=== PATIENT | female | born 1970 | race Caucasian/White ===

== ENCOUNTER 2019-11-18 09:12 | Outpatient (CLI) | payer OTHER, SELFPAY ==
--- NOTE | ~2019-11-18 | MMUS_ITS ---
EXAMINATION: MM diagnostic dalia BI w adan, US breast BI complete HISTORY: Palpable breast lumps. TECHNIQUE: Additional 3-D tomosynthesis images of the breasts were performed and synthetic 2-D images were generated. CAD analysis was submitted and interpreted. High resolution bilateral breast ultraso und was performed. COMPARISON: Comparison to multiple prior studies sequentially, with oldest reviewed study dated 03/19. BREAST PARENCHYMAL COMPOSITION: The breasts are extremely dense, which lowers the sensitivity of mamm ography. FINDINGS: MAMMOGRAPHIC FINDINGS: There are multiple bilateral breast masses in both breasts which are obscured by dense fibroglandular tissue. There are benign breast calcifications. ULTRASOUND: Bilateral breast ultrasound: There are multiple bilateral breast cysts of varying size. In addition i n the right breast at 12:00, 1 cm from the nipple there is a complex heterogeneous mass measuring 2.3 x 1.6 x 1 cm with mixed posterior attenuation and internal vascularity. Largest right breast cysts i s 2.1 cm. In the left breast at 7:00, 4 cm from the nipple there is an oval hypoechoic mass with circ umscribed margins, parallel orientation, no posterior attenuation and no internal vascularity measuri ng 6 mm maximum dimension. At 8:00, 4 cm from the nipple there is an oval circumscribed hypoechoic ma ss measuring 8 mm greatest dimension, likely benign intramammary lymph node. Largest left breast cyst at 2:00, 6 cm from the nipple measuring 3.2 cm maximum dimension. IMPRESSION: 1. Complex heterogeneous hypoechoic right breast mass at 12:00, 1 cm from the nipple measuring 2.3 cm maximum dimension. Ultrasound-guided right breast biopsy recommended. BI-RADS Category 4. 2. Multiple benign left breast masses. Six-month follow-up left breast ultrasound recommended. BI-RAD S Category 3. Reviewed, dictated and finalized at location [facility]. IMPRESSION: 1. Complex heterogeneous hypoechoic right breast mass at 12:00, 1 cm from the n ipple measuring 2.3 cm maximum dimension. Ultrasound-guided right breast biopsy recommended. BI-RADS Category 4. 2. Multiple benign left breast masses. Six-month follow-up left breast ultrasou nd recommended. BI-RADS Category 3.
== END 2019-11-18 09:13 | disposition home or self-care (01) ==
PROVIDERS: PCP Physician Assistant; Visit Provider Physician Assistant
DX: Z12.31 Encounter for screening mammogram for malignant neoplasm of breast (principal); N63.10 Unspecified lump in the right breast, unspecified quadrant; R92.8 Other abnormal and inconclusive findings on diagnostic imaging of breast
CPT/HCPCS: 76641; 77062; 77066; G0279

== ENCOUNTER 2019-12-02 09:07 | Outpatient (CLI) | payer OTHER, SELFPAY ==
--- NOTE | ~2019-12-02 | US_ITS ---
EXAMINATION: US GUIDED NEEDLE BIOPSY DATE: 12/02/2019 11:56 CDT INDICATION: Right 12:00 breast mass TECHNIQUE AND FINDINGS: The risks and potential benefits of the procedure were discussed with the patient, and written inform ed consent was obtained. Timeout procedure was performed. After sterile preparation of the right hosea st, 1% lidocaine was utilized for local anesthesia. A 14G spring-loaded biopsy gun needle was advanced to the edge of the region of interest from a later al approach utilizing sonographic guidance. A total of three tissue core samples were obtained throu gh the lesion. An Inrad tissue marker clip was then placed at the biopsy site. Hemostasis was achiev ed. A sterile bandage was applied. The patient tolerated procedure well and there was no evidence of immediate complication. The patien t was given verbal instructions prior to departing from the department. A two view mammogram was perf ormed to document tissue marker clip placement. The tissue samples were submitted to surgical patholo gy for histologic analysis. IMPRESSION: 1. Successful ultrasound guided biopsy of right 12:00 breast mass with biopsy marker placement. Plea se refer to pathology report for histologic analysis. Reviewed, dictated and finalized at [facility]. Reviewed, dictated and finalized at location [facility]. IMPRESSION: 1. Successful ultrasound guided biopsy of right 12:00 breast mass with biopsy marker placement. Please refer to pathology report for histologic analysis.
--- NOTE | ~2019-12-02 | MM_ITS ---
MM post biopsy invasive RT DATE: 12/02/2019 11:20 INDICATION: Post ultrasound-guided biopsy mammogram TECHNIQUE: Digital MLO and cc views of right breast following ultrasound-guided biopsy of 12:00 mass COMPARISON: 12/02/2019 ultrasound-guided biopsy of right breast FINDINGS: A biopsy marker is present in the inner aspect of the upper inner quadrant of the right shady ast IMPRESSION: Status post ultrasound-guided biopsy of right upper central breast mass Reviewed, dictated and finalized at [facility]. Reviewed, dictated and finalized at location [facility].
== END 2019-12-02 09:08 | disposition home or self-care (01) ==
PROVIDERS: PCP Physician Assistant; Visit Provider Physician Assistant
DX: R92.8 Other abnormal and inconclusive findings on diagnostic imaging of breast (principal)
CPT/HCPCS: 19083; 88305

== ENCOUNTER 2024-04-05 07:22 | Outpatient (CLI) | payer BC, SELFPAY ==
--- NOTE | ~2024-04-05 | CT_ITS ---
EXAMINATION: CT abdomen pelvis wo/w con DATE: 04/05/2024 08:14 INDICATION: Right kidney stone. TECHNIQUE: Computed tomography (CT) of the abdomen and pelvis was performed without and with intraven ous contrast using a total of 130 mL Omnipaque-350 intravenous contrast with a double-bolus technique for simultaneous opacification of the renal parenchyma and renal collecting system. Automated exposu re control and iterative reconstruction technique were employed. The dose-length product was 961.44 m Gy-cm. COMPARISON: None FINDINGS: The visualized portions of the lung bases demonstrate mild atelectasis. No pleural effusion. The hear t size is normal. No pericardial effusion. There is a small sliding hiatal hernia. The liver, gallbla dder, spleen, pancreas, and adrenal glands are normal. There are 7 mm and 7 mm stones in right kidney . There are cysts in the kidneys measuring up to 6 mm on the left. The ureters are well opacified and are normal. The bladder is normal. There are no dilated loops of bowel. The appendix is normal. Ther e is a small fibroid in the uterus. There are no pathologically enlarged lymph nodes. There is no marva e intraperitoneal fluid. There is mild thoracic and lumbar spondylosis. IMPRESSION: 1. Nonobstructing right kidney stones. Reviewed, dictated and finalized at location B. 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
--- OUTSIDE RECORDS SUMMARY | 2024-04-07 15:35 | XMS_ITS | Data Portability ---
Author Organization [facility] [place], Main Office Address [address] [place] [address] Assessment No assessment recorded. Plan of Treatment Reminders Order Date Submit Date Provider Last Modified By Organization Details Last Modified Time Details Appointments None recorded. Lab TSH + free T4, serum 2022 023 [facility], [address], [address], [place], [address], 3 09:01:28 lipid panel, serum 2022 023 [facility], [address], [address], [place], [address], 3 09:01:30 urinalysis, dipstick 2022 023 [email or web address] [facility] [place], [address], [place], [address], 3 09:01:43 CBC w/ auto diff 2022 023 [facility], [address], [address], [place], [address], 3 09:01:33 CMP, serum or plasma 2022 023 [facility], [address], [address], [place], [address], 3 09:01:31 HbA1c (hemoglobin A1c), blood 2022 023 [facility], [address], [place], [address], 09:01:32 Referral None recorded. Procedures None recorded. Surgeries None recorded. Imaging None recorded. Medication Orders nitrofurant oin monohydrate /macrocryst als 100 mg capsule 2022 023 [email or web address] [id number], [address] [place], [address], 3 23:45:25 bupropion HCl SR 100 mg tablet,12 hr sustained-r elease 2022 023 [id number] [address] [place], [address], 3 13:11:26 Patient TargetsNo targets recorded. Patient InstructionsNo instructions recorded. Reason for Referral None Reported. Results Created Date Observation Date Name Description Value Unit Range Abnormal Flag Note LastModifiedBy Organization Detail LastModifiedTime 01/08/2001/09/2021 REFLE XIVE URINE CULTU RE reflexive urine culture NO CULTU RE INDIC ATED Not Available [address], [address], 01/09/2021 01:29:08 01/08/2001/09/2021 URINA LYSIS , COMPL ETE W/REF ERIC TO CULTU RE color yellow yellow normal Not Available [address], [address], 01/09/2021 01:29:08 01/08/2001/09/2021 URINA LYSIS , COMPL ETE W/REF ERIC TO CULTU RE appearance clear clear normal Not Available [address], [address], 01/09/2021 01:29:08 01/08/2001/09/2021 URINA LYSIS , COMPL ETE W/REF ERIC TO CULTU RE specific gravity 1.014 1.001- 1.035 normal Not Available [address], [address], 01/09/2021 01:29:08 01/08/2001/09/2021 URINA LYSIS , COMPL ETE W/REF ERIC TO CULTU RE pH 6.5 5.0-8. 0 normal Not Available [address], [address], 01/09/2021 01:29:08 01/08/2001/09/2021 URINA LYSIS , COMPL ETE W/REF ERIC TO CULTU RE glucose negati ve negati ve normal Not Available [address], [address], 01/09/2021 01:29:08 01/08/2001/09/2021 URINA LYSIS , COMPL ETE W/REF ERIC TO CULTU RE bilirubin negati ve negati ve normal Not Available [address], [address], 01/09/2021 01:29:08 01/08/2001/09/2021 URINA LYSIS , COMPL ETE W/REF ERIC TO CULTU RE ketones negati ve negati ve normal Not Available [address], [address], 01/09/2021 01:29:08 01/08/2001/09/2021 URINA LYSIS , COMPL ETE W/REF ERIC TO CULTU RE occult blood negati ve negati ve normal Not Available [address], [address], 01/09/2021 01:29:08 01/08/2001/09/2021 URINA LYSIS , COMPL ETE W/REF ERIC TO CULTU RE protein negati ve negati ve normal Not Available [address], [address], 01/09/2021 01:29:08 01/08/2001/09/2021 URINA LYSIS , COMPL ETE W/REF ERIC TO CULTU RE nitrite negati ve negati ve normal Not Available [address], [address], 01/09/2021 01:29:08 01/08/2001/09/2021 URINA LYSIS , COMPL ETE W/REF ERIC TO CULTU RE leukocyte esterase negati ve negati ve normal Not Available [address], [address], 01/09/2021 01:29:08 01/08/2001/09/2021 URINA LYSIS , COMPL ETE W/REF ERIC TO CULTU RE WBC 0-5 /hpf < or = 5 normal Not Available [address], [address], 01/09/2021 01:29:08 01/08/2001/09/2021 URINA LYSIS , COMPL ETE W/REF ERIC TO CULTU RE RBC 0-2 /hpf < or = 2 normal Not Available [address], [address], 01/09/2021 01:29:08 01/08/2001/09/2021 URINA LYSIS , COMPL ETE W/REF ERIC TO CULTU RE squamous epithelial cells 0-5 /hpf < or = 5 Not Available [address], [address], 01/09/2021 01:29:08 01/08/2001/09/2021 URINA LYSIS , COMPL ETE W/REF ERIC TO CULTU RE bacteria none seen /hpf none seen normal Not Available [address], [address], 01/09/2021 01:29:08 01/08/2001/09/2021 URINA LYSIS , COMPL ETE W/REF ERIC TO CULTU RE hyaline cast none seen /lpf none seen normal Not Available [address], [address], 01/09/2021 01:29:08 01/08/20 21 01/09/2021 CBC (INCL UDES DIFF/ PLT) white blood cell count 4.1 thous and/u L 3.8-10 .8 normal Not Available [address], [address], 01/09/2021 01:29:07 01/08/2001/09/2021 CBC (INCL UDES DIFF/ PLT) red blood cell count 3.80 marley on/uL 3.80-5 .10 normal Not Available [address], [address], 01/09/2021 01:29:07 01/08/20 21 01/09/2021 CBC (INCL UDES DIFF/ PLT) hemoglobin 12.4 g/dL 11.7-1 5.5 normal Not Available [address], [address], 01/09/2021 01:29:07 01/08/20 21 01/09/2021 CBC (INCL UDES DIFF/ PLT) hematocrit 36.1 % 35.0-4 5.0 normal Not Available [address], [address], 01/09/2021 01:29:07 01/08/2001/09/2021 CBC (INCL UDES DIFF/ PLT) MCV 95.0 fL 80.0-1 00.0 normal Not Available [address], [address], 01/09/2021 01:29:07 01/08/20 21 01/09/2021 CBC (INCL UDES DIFF/ PLT) MCH 32.6 pg 27.0-3 3.0 normal Not Available [address], [address], 01/09/2021 01:29:07 01/08/2001/09/2021 CBC (INCL UDES DIFF/ PLT) MCHC 34.3 g/dL 32.0-3 6.0 normal Not Available [address], [address], 01/09/2021 01:29:07 01/08/2001/09/2021 CBC (INCL UDES DIFF/ PLT) RDW 12.5 % 11.0-1 5.0 normal Not Available [address], [address], 01/09/2021 01:29:07 01/08/2001/09/2021 CBC (INCL UDES DIFF/ PLT) platelet count 223 thous and/u L 140-40 0 normal Not Available [address], [address], 01/09/2021 01:29:07 01/08/2001/09/2021 CBC (INCL UDES DIFF/ PLT) MPV 10.3 fL 7.5-12 .5 normal Not Available [address], [address], 01/09/2021 01:29:07 01/08/2001/09/2021 CBC (INCL UDES DIFF/ PLT) absolute neutrophils 2612 cells /uL 1500-7 800 normal Not Available [address], [address], 01/09/2021 01:29:07 01/08/2001/09/2021 CBC (INCL UDES DIFF/ PLT) absolute lymphocytes 996 cells /uL 850-39 00 normal Not Available [address], [address], 01/09/2021 01:29:07 01/08/20 21 01/09/2021 CBC (INCL UDES DIFF/ PLT) absolute monocytes 320 cells /uL 200-95 0 normal Not Available [address], [address], 01/09/2021 01:29:07 01/08/20 21 01/09/2021 CBC (INCL UDES DIFF/ PLT) absolute eosinophils 131 cells /uL 15-500 normal Not Available [address], [address], 01/09/2021 01:29:07 01/08/2001/09/2021 CBC (INCL UDES DIFF/ PLT) absolute basophils 41 cells /uL 0-200 normal Not Available [address], [address], 01/09/2021 01:29:07 01/08/2001/09/2021 CBC (INCL UDES DIFF/ PLT) neutrophils 63.7 % normal Not Available [address], [address], 01/09/2021 01:29:07 01/08/20 21 01/09/2021 CBC (INCL UDES DIFF/ PLT) lymphocytes 24.3 % normal Not Available [address], [address], 01/09/2021 01:29:07 01/08/2001/09/2021 CBC (INCL UDES DIFF/ PLT) monocytes 7.8 % normal Not Available [address], [address], 01/09/2021 01:29:07 01/08/20 21 01/09/2021 CBC (INCL UDES DIFF/ PLT) eosinophils 3.2 % normal Not Available [address], [address], 01/09/2021 01:29:07 01/08/20 21 01/09/2021 CBC (INCL UDES DIFF/ PLT) basophils 1.0 % normal Not Available [address], [address], 01/09/2021 01:29:07 01/08/20 21 01/09/2021 HEMOG LOBIN A1C hemoglobin A1C 4.6 %_of_ total _HGB <5.7 normal Not Available [address], [address], 01/09/2021 01:29:06 01/08/20 21 01/09/2021 COMPR EHENS CHELSEA METAB OLIC PANEL glucose 91 mg/dL 65-99 normal Fasti ng refer ence inter yves Not Available [address], [address], 01/09/2021 01:29:06 01/08/20 21 01/09/2021 COMPR EHENS CHELSEA METAB OLIC PANEL urea nitrogen (BUN) 15 mg/dL 7-25 normal Not Available [address], [address], 01/09/2021 01:29:06 01/08/20 21 01/09/2021 COMPR EHENS CHELSEA METAB OLIC PANEL creatinine 0.74 mg/dL 0.50-1 .10 normal Not Available [address], [address], 01/09/2021 01:29:06 01/08/20 21 01/09/2021 COMPR EHENS CHELSEA METAB OLIC PANEL eGFR non-afr. syrian 96 mL/mi n/1.7 3m2 > or = 60 normal Not Available [address], [address], 01/09/2021 01:29:06 01/08/20 21 01/09/2021 COMPR EHENS CHELSEA METAB OLIC PANEL eGFR 111 mL/mi n/1.7 3m2 > or = 60 normal Not Available [address], [address], 01/09/2021 01:29:06 01/08/20 21 01/09/2021 COMPR EHENS CHELSEA METAB OLIC PANEL BUN/creatini ne ratio not applic able (calc ) 6-22 Not Available [address], [address], 01/09/2021 01:29:06 01/08/20 21 01/09/2021 COMPR EHENS CHELSEA METAB OLIC PANEL sodium 139 mmol/ L 135-14 6 normal Not Available [address], [address], 01/09/2021 01:29:06 01/08/20 21 01/09/2021 COMPR EHENS CHELSEA METAB OLIC PANEL potassium 3.8 mmol/ L 3.5-5. 3 normal Not Available [address], [address], 01/09/2021 01:29:06 01/08/20 21 01/09/2021 COMPR EHENS CHELSEA METAB OLIC PANEL chloride 106 mmol/ L 98-110 normal Not Available [address], [address], 01/09/2021 01:29:06 01/08/20 21 01/09/2021 COMPR EHENS CHELSEA METAB OLIC PANEL carbon dioxide 26 mmol/ L 20-32 normal Not Available [address], [address], 01/09/2021 01:29:06 01/08/20 21 01/09/2021 COMPR EHENS CHELSEA METAB OLIC PANEL calcium 8.7 mg/dL 8.6-10 .2 normal Not Available [address], [address], 01/09/2021 01:29:06 01/08/20 21 01/09/2021 COMPR EHENS CHELSEA METAB OLIC PANEL protein, total 6.3 g/dL 6.1-8. 1 normal Not Available [address], [address], 01/09/2021 01:29:06 01/08/20 21 01/09/2021 COMPR EHENS CHELSEA METAB OLIC PANEL albumin 4.2 g/dL 3.6-5. 1 normal Not Available [address], [address], 01/09/2021 01:29:06 01/08/2001/09/2021 COMPR EHENS CHELSEA METAB OLIC PANEL globulin 2.1 g/dL_ (calc ) 1.9-3. 7 normal Not Available [address], [address], 01/09/2021 01:29:06 01/08/20 21 01/09/2021 COMPR EHENS CHELSEA METAB OLIC PANEL albumin/glob ulin ratio 2.0 (calc ) 1.0-2. 5 normal Not Available [address], [address], 01/09/2021 01:29:06 01/08/2001/09/2021 COMPR EHENS CHELSEA METAB OLIC PANEL bilirubin, total 0.9 mg/dL 0.2-1. 2 normal Not Available [address], [address], 01/09/2021 01:29:06 01/08/20 21 01/09/2021 COMPR EHENS CHELSEA METAB OLIC PANEL alkaline phosphatase 62 U/L 31-125 normal Not Available [address] [address] [place], [address], 01/09/2021 01:29:06 01/08/20 21 01/09/2021 COMPR EHENS CHELSEA METAB OLIC PANEL AST 13 U/L 10-35 normal Not Available [address], [address], 01/09/2021 01:29:06 01/08/20 21 01/09/2021 COMPR EHENS CHELSEA METAB OLIC PANEL ALT 9 U/L 6-29 normal Not Available [address], [address], 01/09/2021 01:29:06 01/08/20 21 01/09/2021 LIPID PANEL WITH RATIO S cholesterol, total 152 mg/dL <200 normal Not Available [address], [address], 01/09/2021 01:29:05 01/08/20 21 01/09/2021 LIPID PANEL WITH RATIO S HDL cholesterol 50 mg/dL > or = 50 normal Not Available [address], [address], 01/09/2021 01:29:05 01/08/20 21 01/09/2021 LIPID PANEL WITH RATIO S triglyceride s 80 mg/dL <150 normal Not Available [address], [address], 01/09/2021 01:29:05 01/08/20 21 01/09/2021 LIPID PANEL WITH RATIO S LDL-choleste rol 85 mg/dL _(flores c) normal Refer ence range : <100 Luisa able range <100 mg/dL for prima ry preve ntion ; <70 mg/dL for patie nts with CHD or diabe tic patie nts with > or = 2 CHD risk facto rs. LDL-C is now calcu lated using the Rosie n-Hop kins calcu carmencita n, which is a valid ated novel nico gilberto cline r accur acy than the Fried amirah equat ion in the estim ation of LDL-C . Rosie setphen SS et al. SONYA. 2013; 310(1 9): 2061- 2068 (http ://ed ucati on.Qu Clair elizabeth tics. com/f aq/FA Q164) Not Available [address], [address], 01/09/2021 01:29:05 01/08/20 21 01/09/2021 LIPID PANEL WITH RATIO S chol/HDLC ratio 3.0 (calc ) <5.0 normal Not Available [address], [address], 01/09/2021 01:29:05 01/08/2001/09/2021 LIPID PANEL WITH RATIO S LDL/HDL ratio 1.7 (calc ) Below avera ge Risk: <2.34 [place] ge Risk: 2.35- 4.12 Moder ate Risk: 4.13- 5.56 High Risk: >5.57 Not Available [address], [address], 01/09/2021 01:29:05 01/08/2001/09/2021 LIPID PANEL WITH RATIO S non HDL cholesterol 102 mg/dL _(flores c) <130 normal For patie nts with diabe dustin plus 1 major ASCVD risk facto r, treat ing to a non-H DL-C goal of <100 mg/dL (LDL- C of <70 mg/dL ) is consi solange a mari peshalini c optio n. Not Available [address], [address], 01/09/2021 01:29:05 01/08/2001/09/2021 TSH+F REE T4 TSH 1.99 mIU/L normal Refer ence Range > or = 20 Years 0.40- 4.50 Pregn kishan Range s First trime ster 0.26- 2.66 Secon d trime ster 0.55- 2.73 Third trime ster 0.43- 2.91 Not Available [facility] [address] [address] [place], [address], 01/09/2021 01:28:56 01/08/20 21 01/09/2021 TSH+F REE T4 T4, free 1.1 NG/dL 0.8-1. 8 normal Not Available [address], [address], 01/09/2021 01:28:56 01/31/20 22 01/31/2022 URINA LYSIS REFLE X color yellow yellow normal Not Available [address], [address], 01/31/2022 15:53:44 01/31/20 22 01/31/2022 URINA LYSIS REFLE X appearance cloudy clear abnormal Not Available [address], [address], 01/31/2022 15:53:44 01/31/20 22 01/31/2022 URINA LYSIS REFLE X specific gravity 1.016 1.001- 1.035 normal Not Available [address], [address], 01/31/2022 15:53:44 01/31/20 22 01/31/2022 URINA LYSIS REFLE X pH 5.5 5.0-8. 0 normal Not Available [address], [address], 01/31/2022 15:53:44 01/31/20 22 01/31/2022 URINA LYSIS REFLE X glucose negati ve negati ve normal Not Available [address], [address], 01/31/2022 15:53:44 01/31/20 22 01/31/2022 URINA LYSIS REFLE X bilirubin negati ve negati ve normal Not Available [address], [address], 01/31/2022 15:53:44 01/31/20 22 01/31/2022 URINA LYSIS REFLE X ketones negati ve negati ve normal Not Available [address], [address], 01/31/2022 15:53:44 01/31/20 22 01/31/2022 URINA LYSIS REFLE X occult blood negati ve negati ve normal Not Available [address], [address], 01/31/2022 15:53:44 01/31/20 22 01/31/2022 URINA LYSIS REFLE X protein negati ve negati ve normal Not Available [address], [address], 01/31/2022 15:53:44 01/31/20 22 01/31/2022 URINA LYSIS REFLE X nitrite negati ve negati ve normal Not Available [address], [address], 01/31/2022 15:53:44 01/31/20 22 01/31/2022 URINA LYSIS REFLE X leukocyte esterase 1+ negati ve abnormal Not Available [address], [address], 01/31/2022 15:53:44 01/31/20 22 01/31/2022 URINA LYSIS REFLE X WBC 10-20 /hpf < or = 5 abnormal Not Available [address], [address], 01/31/2022 15:53:44 01/31/20 22 01/31/2022 URINA LYSIS REFLE X RBC none seen /hpf < or = 2 normal Not Available [address], [address], 01/31/2022 15:53:44 01/31/20 22 01/31/2022 URINA LYSIS REFLE X squamous epithelial cells 10-20 /hpf < or = 5 abnormal Not Available [address], [address], 01/31/2022 15:53:44 01/31/20 22 01/31/2022 URINA LYSIS REFLE X bacteria many /hpf none seen abnormal Not Available [address], [address], 01/31/2022 15:53:44 01/31/20 22 01/31/2022 URINA LYSIS REFLE X hyaline cast none seen /lpf none seen normal Not Available [address], [address], 01/31/2022 15:53:44 01/31/20 22 01/31/2022 CBC (INCL UDES DIFF/ PLT) white blood cell count 4.9 thous and/u L 3.8-10 .8 normal Not Available [address], [address], 01/31/2022 15:53:43 01/31/20 22 01/31/2022 CBC (INCL UDES DIFF/ PLT) red blood cell count 4.40 marley on/uL 3.80-5 .10 normal Not Available [address], [address], 01/31/2022 15:53:43 01/31/20 22 01/31/2022 CBC (INCL UDES DIFF/ PLT) hemoglobin 13.7 g/dL 11.7-1 5.5 normal Not Available [address], [address], 01/31/2022 15:53:43 01/31/20 22 01/31/2022 CBC (INCL UDES DIFF/ PLT) hematocrit 40.4 % 35.0-4 5.0 normal Not Available [address], [address], 01/31/2022 15:53:43 01/31/20 22 01/31/2022 CBC (INCL UDES DIFF/ PLT) MCV 91.8 fL 80.0-1 00.0 normal Not Available [address], [address], 01/31/2022 15:53:43 01/31/20 22 01/31/2022 CBC (INCL UDES DIFF/ PLT) MCH 31.1 pg 27.0-3 3.0 normal Not Available [address], [address], 01/31/2022 15:53:43 01/31/20 22 01/31/2022 CBC (INCL UDES DIFF/ PLT) MCHC 33.9 g/dL 32.0-3 6.0 normal Not Available [address], [address], 01/31/2022 15:53:43 01/31/20 22 01/31/2022 CBC (INCL UDES DIFF/ PLT) RDW 13.0 % 11.0-1 5.0 normal Not Available [address], [address], 01/31/2022 15:53:43 01/31/20 22 01/31/2022 CBC (INCL UDES DIFF/ PLT) platelet count 263 thous and/u L 140-40 0 normal Not Available [address], [address], 01/31/2022 15:53:43 01/31/20 22 01/31/2022 CBC (INCL UDES DIFF/ PLT) MPV 10.6 fL 7.5-12 .5 normal Not Available [address], [address], 01/31/2022 15:53:43 01/31/20 22 01/31/2022 CBC (INCL UDES DIFF/ PLT) absolute neutrophils 2920 cells /uL 1500-7 800 normal Not Available [address], [address], 01/31/2022 15:53:43 01/31/20 22 01/31/2022 CBC (INCL UDES DIFF/ PLT) absolute lymphocytes 1186 cells /uL 850-39 00 normal Not Available [address], [address], 01/31/2022 15:53:43 01/31/20 22 01/31/2022 CBC (INCL UDES DIFF/ PLT) absolute monocytes 377 cells /uL 200-95 0 normal Not Available [address], [address], 01/31/2022 15:53:43 01/31/20 22 01/31/2022 CBC (INCL UDES DIFF/ PLT) absolute eosinophils 368 cells /uL 15-500 normal Not Available [address], [address], 01/31/2022 15:53:43 01/31/20 22 01/31/2022 CBC (INCL UDES DIFF/ PLT) absolute basophils 49 cells /uL 0-200 normal Not Available [address], [address], 01/31/2022 15:53:43 01/31/20 22 01/31/2022 CBC (INCL UDES DIFF/ PLT) neutrophils 59.6 % normal Not Available [address], [address], 01/31/2022 15:53:43 01/31/20 22 01/31/2022 CBC (INCL UDES DIFF/ PLT) lymphocytes 24.2 % normal Not Available [address] [place], [address], 01/31/2022 15:53:43 01/31/20 22 01/31/2022 CBC (INCL UDES DIFF/ PLT) monocytes 7.7 % normal Not Available [facility] [address] [address] [place], [address], 01/31/2022 15:53:43 01/31/20 22 01/31/2022 CBC (INCL UDES DIFF/ PLT) eosinophils 7.5 % normal Not Available [facility] [address] [address] [place], [address], 01/31/2022 15:53:43 01/31/20 22 01/31/2022 CBC (INCL UDES DIFF/ PLT) basophils 1.0 % normal Not Available [facility] [address] [address] [place], [address], 01/31/2022 15:53:43 01/31/20 22 01/31/2022 HEMOG LOBIN A1C hemoglobin A1C 4.8 %_of_ total _HGB <5.7 normal For the purpo se of screnelida alfred for the prese nce of diabe dustin: <5.7% Consi stent with the absen ce of diabe dustin 5.7-6 .4% Consi stent with incre ased risk for diabe dustin (pred iabet es) > or =6.5% Consi stent with diabe dustin This assay resul t is consi stent with a decre ased risk of diabe dustin. Curre ntly, no conse nsus exist justin luciano use of hemog lobin A1c for diagn osis of diabe dustin in child robert. Accor ding to Ameri can Diabe dustin Assoc iatio n (ADA) guide lines , hemog lobin A1c <7.0% repre sents optim al contr ol in non-p regna nt diabe tic patie nts. Diffe rent metri cs may apply to speci fic patie nt popul ation s. Stand ards of Medic al Care in Diabe dustin(A DA). Not Available [facility] [address] [place], [address], 01/31/2022 15:53:43 01/31/20 22 01/31/2022 COMPR EHENS CHELSEA METAB OLIC PANEL glucose 97 mg/dL 65-99 normal Fasti ng refer ence inter yves Not Available [address], [address], 01/31/2022 15:53:42 01/31/20 22 01/31/2022 COMPR EHENS CHELSEA METAB OLIC PANEL urea nitrogen (BUN) 18 mg/dL 7-25 normal Not Available [address], [address], 01/31/2022 15:53:42 01/31/20 22 01/31/2022 COMPR EHENS CHELSEA METAB OLIC PANEL creatinine 0.76 mg/dL 0.50-0 .99 normal Not Available [address], [address], 01/31/2022 15:53:42 01/31/20 22 01/31/2022 COMPR EHENS CHELSEA METAB OLIC PANEL eGFR 96 mL/mi n/1.7 3m2 > or = 60 normal The eGFR is based on the CKD-E PI 2020 vickey meza. To calcu late the new eGFR from a previ ous Creat inine or Cysta tin C resul t, go to https ://yadira vela.mckenna holland/davis walden s/ kdoqi /gfr% 5Fcal culat or Not Available [address], [address], 01/31/2022 15:53:42 01/31/20 22 01/31/2022 COMPR EHENS CHELSEA METAB OLIC PANEL BUN/creatini ne ratio not applic able (calc ) 6-22 Not Available [address], [address], 01/31/2022 15:53:42 01/31/20 22 01/31/2022 COMPR EHENS CHELSEA METAB OLIC PANEL sodium 139 mmol/ L 135-14 6 normal Not Available [address], [address], 01/31/2022 15:53:42 01/31/20 22 01/31/2022 COMPR EHENS CHELSEA METAB OLIC PANEL potassium 4.2 mmol/ L 3.5-5. 3 normal Not Available [address], [address], 01/31/2022 15:53:42 01/31/20 22 01/31/2022 COMPR EHENS CHELSAE METAB OLIC PANEL chloride 104 mmol/ L 98-110 normal Not Available [address], [address], 01/31/2022 15:53:42 01/31/20 22 01/31/2022 COMPR EHENS CHELSEA METAB OLIC PANEL carbon dioxide 25 mmol/ L 20-32 normal Not Available [address], [address], 01/31/2022 15:53:42 01/31/20 22 01/31/2022 COMPR EHENS CHELSEA METAB OLIC PANEL calcium 9.1 mg/dL 8.6-10 .2 normal Not Available [address], [address], 01/31/2022 15:53:42 01/31/20 22 01/31/2022 COMPR EHENS CHELSEA METAB OLIC PANEL protein, total 7.0 g/dL 6.1-8. 1 normal Not Available [address], [address], 01/31/2022 15:53:42 01/31/20 22 01/31/2022 COMPR EHENS CHELSEA METAB OLIC PANEL albumin 4.5 g/dL 3.6-5. 1 normal Not Available [address], [address], 01/31/2022 15:53:42 01/31/20 22 01/31/2022 COMPR EHENS CHELSEA METAB OLIC PANEL globulin 2.5 g/dL_ (calc ) 1.9-3. 7 normal Not Available [address], [address], 01/31/2022 15:53:42 01/31/20 22 01/31/2022 COMPR EHENS CHELSEA METAB OLIC PANEL albumin/glob ulin ratio 1.8 (calc ) 1.0-2. 5 normal Not Available [address], [address], 01/31/2022 15:53:42 01/31/20 22 01/31/2022 COMPR EHENS CHELSEA METAB OLIC PANEL bilirubin, total 1.4 mg/dL 0.2-1. 2 high Not Available [address], [address], 01/31/2022 15:53:42 01/31/20 22 01/31/2022 COMPR EHENS [facility] METAB OLIC PANEL alkaline phosphatase 80 U/L 31-125 normal Not Available [address], [address], 01/31/2022 15:53:42 01/31/20 22 01/31/2022 COMPR EHENS [place] METAB OLIC PANEL AST 15 U/L 10-35 normal Not Available [address], [address], 01/31/2022 15:53:42 01/31/20 22 01/31/2022 COMPR EHENS [facility] METAB OLIC PANEL ALT 13 U/L 6-29 normal Not Available [address], [address], 01/31/2022 15:53:42 01/31/20 22 01/31/2022 LIPID PANEL WITH RATIO S cholesterol, total 201 mg/dL <200 high Not Available [address], [address], 01/31/2022 15:53:42 01/31/20 22 01/31/2022 LIPID PANEL WITH RATIO S HDL cholesterol 51 mg/dL > or = 50 normal Not Available [facility] [id number] [place] [address], [address], 01/31/2022 15:53:42 01/31/20 22 01/31/2022 LIPID PANEL WITH RATIO S triglyceride s 121 mg/dL <150 normal Not Available [address] [address] [place], [address], 01/31/2022 15:53:42 01/31/20 22 01/31/2022 LIPID PANEL WITH RATIO S LDL-choleste rol 127 mg/dL _(flores c) high Refer ence range : <100 Lu[place] able range <100 mg/dL for prima ry preve ntion ; <70 mg/dL for patie nts with CHD or diabe tic patie nts with > or = 2 CHD risk facto rs. LDL-C is now calcu lated using the Rosie n-Hop kins calcu carmencita n, which is a valid ated novel hubert trujillo than the Fried amirah equat ion in the estim ation of LDL-C . Rosie stephen SS et al. SONYA. 2013; 310(1 9): 2061- 2068 (http ://ed ucati on.S[employer] etiennes. com/f aq/FA Q164) Not Available [address] [address] [place], [address], 01/31/2022 15:53:42 01/31/20 22 01/31/2022 LIPID PANEL WITH RATIO S chol/HDLC ratio 3.9 (calc ) <5.0 normal Not Available [facility] [address] [place], [address], 01/31/2022 15:53:42 01/31/20 22 01/31/2022 LIPID PANEL WITH RATIO S LDL/HDL ratio 2.5 (calc ) Below avera ge Risk: <2.34 [place] ge Risk: 2.35- 4.12 Moder ate Risk: 4.13- 5.56 High Risk: >5.57 Not Available [address] [address] [place], [address], 01/31/2022 15:53:42 01/31/20 22 01/31/2022 LIPID PANEL WITH RATIO S non HDL cholesterol 150 mg/dL _(flores c) <130 high For patie nts with diabe dustin plus 1 major ASCVD risk facto r, treat ing to a non-H DL-C goal of <100 mg/dL (LDL- C of <70 mg/dL ) is consi solange a mari peuti c optio n. Not Available [address] [address] [place], [address], 01/31/2022 15:53:42 01/31/20 22 01/31/2022 TSH+F REE T4 TSH 1.66 mIU/L normal Refer ence Range > or = 20 Years 0.40- 4.50 Pregn kishan Range s First trime ster 0.26- 2.66 Secon d trime ster 0.55- 2.73 Third trime ster 0.43- 2.91 Not Available [address] [address] [place], [address], 01/31/2022 15:53:41 01/31/2001/31/2022 TSH+F REE T4 T4, free 1.2 NG/dL 0.8-1. 8 normal Not Available [facility] [address] [address] [place], [address], 01/31/2022 15:53:41 11/12/19 23 11/11/2022 urina lysis , dipst ick Leukocytes (reference range: negative carroll/??l) Trace Not Available [facility] [place] [address], [place], [address], 11/11/2022 09:01:08 11/12/19 23 11/11/2022 urina lysis , dipst ick Nitrite (reference rage: negative mg/dl) negati ve Not Available [facility] [place] [address], [place], [address], 11/11/2022 09:01:08 11/12/19 23 11/11/2022 urina lysis , dipst ick Urobilinogen (reference range: 0.2-1 mg/dl) 0.2 Not Available [facility] [place] [address], [place], [address], 11/11/2022 09:01:08 11/12/19 23 11/11/2022 urina lysis , dipst ick Protein (reference range: negative mg/dl) Small Not Available [facility] [place] [address], [place], [address], 11/11/2022 09:01:08 11/12/19 23 11/11/2022 urina lysis , dipst ick pH (reference range: 5-7) 5.5 Not Available [facility] [place] [address], [place], [address], 11/11/2022 09:01:08 11/12/19 23 11/11/2022 urina lysis , dipst ick Blood (reference range: negative Jasson/??l) Negati ve Not Available [facility] [place] [address], [place], [address], 11/11/2022 09:01:08 11/12/19 23 11/11/2022 urina lysis , dipst ick Specific [place] (reference range: 1.005-1.030) 1.025 Not Available [facility] [place] [address], [place], [address], 11/11/2022 09:01:08 11/12/19 23 11/11/2022 urina lysis , dipst ick Ketone (reference range: negative mg/dl) Negati ve Not Available [facility] [place] [address], [place], [address], 11/11/2022 09:01:08 11/12/19 23 11/11/2022 urina lysis , dipst ick Bilirubin (reference range: negative mg/dl) Negati ve Not Available [facility] [place] [address], [place], [address], 11/11/2022 09:01:08 11/12/19 23 11/11/2022 urina lysis , dipst ick Glucose (reference range: negative mg/dl) Negati ve Not Available [facility] [place] [address], [place], [address], 11/11/2022 09:01:08 11/12/19 23 11/11/2022 urina lysis , dipst ick Appearance Cloudy Not Available [facility] [place] [address], [place], [address], 11/11/2022 09:01:08 11/12/19 23 11/11/2022 urina lysis , dipst ick Color Yellow Not Available [facility] [place] [address], [place], [address], 11/11/2022 09:01:08 12/30/19 23 12/30/2022 TSH+F REE T4 TSH 1.48 mIU/L normal Refer ence Range > or = 20 Years 0.40- 4.50 Pregn kishan Range s First trime ster 0.26- 2.66 Secon d trime ster 0.55- 2.73 Third trime ster 0.43- 2.91 Not Available [address], [address], 12/30/2022 09:01:28 12/30/1912/30/2022 TSH+F REE T4 T4, free 1.0 NG/dL 0.8-1. 8 normal Not Available [address], [address], 12/30/2022 09:01:28 12/30/1912/30/2022 LIPID PANEL WITH RATIO S cholesterol, total 201 mg/dL <200 high Not Available [address], [address], 12/30/2022 09:01:30 12/30/1912/30/2022 LIPID PANEL WITH RATIO S HDL cholesterol 47 mg/dL > or = 50 low Not Available [address], [address], 12/30/2022 09:01:30 12/30/1912/30/2022 LIPID PANEL WITH RATIO S triglyceride s 171 mg/dL <150 high Not Available [address], [address], 12/30/2022 09:01:30 12/30/1912/30/2022 LIPID PANEL WITH RATIO S LDL-choleste rol 125 mg/dL _(flores c) high Refer ence range : <100 Luisa able range <100 mg/dL for prima ry preve ntion ; <70 mg/dL for patie nts with CHD or diabe tic patie nts with > or = 2 CHD risk facto rs. LDL-C is now calcu lated using the Rosie n-Hop kins calcu carmencita n, which is a valid ated novel metho d rosa cline r accur acy than the Fried amirah equat ion in the estim ation of LDL-C . Rosie n SS et al. SONYA. 2013; 310(1 9): 2061- 2068 (http ://ed ucati on.Sapphire ramirezELDR [employer]. com/f aq/FA Q164) Not Available [address] [address] [place], [address], 12/30/2022 09:01:30 12/30/1912/30/2022 LIPID PANEL WITH RATIO S chol/HDLC ratio 4.3 (calc ) <5.0 normal Not Available [address], [address], 12/30/2022 09:01:30 12/30/1912/30/2022 LIPID PANEL WITH RATIO S LDL/HDL ratio 2.7 (calc ) Below avera ge Risk: <2.34 [place] ge Risk: 2.35- 4.12 Moder ate Risk: 4.13- 5.56 High Risk: >5.57 Not Available [address], [place], [address], 12/30/2022 09:01:30 12/30/1912/30/2022 LIPID PANEL WITH RATIO S non HDL cholesterol 154 mg/dL _(flores c) <130 high For patie nts with diabe dustin plus 1 major ASCVD risk facto r, treat ing to a non-H DL-C goal of <100 mg/dL (LDL- C of <70 mg/dL ) is consi solange a mari peshalini c optio n. Not Available [address], [address], 12/30/2022 09:01:30 12/30/1912/30/2022 COMPR EHENS CHELSEA METAB OLIC PANEL glucose 86 mg/dL 65-99 normal Fasti ng refer ence inter yves Not Available [address], [address], 12/30/2022 09:01:31 12/30/1912/30/2022 COMPR EHENS CHELSEA METAB OLIC PANEL urea nitrogen (BUN) 14 mg/dL 7-25 normal Not Available [address], [address], 12/30/2022 09:01:31 12/30/19 23 12/30/2022 COMPR EHENS CHELSEA METAB OLIC PANEL creatinine 0.80 mg/dL 0.50-1 .03 normal Not Available [address], [address], 12/30/2022 09:01:31 12/30/1912/30/2022 COMPR EHENS CHELSEA METAB OLIC PANEL eGFR 90 mL/mi n/1.7 3m2 > or = 60 normal Not Available [address], [address], 12/30/2022 09:01:31 12/30/1912/30/2022 COMPR EHENS CHELSEA METAB OLIC PANEL BUN/creatini ne ratio SEE NOTE: (calc ) 6-22 Not Repor pete: BUN and Creat inine are withi n refer ence range . Not Available [address], [address], 12/30/2022 09:01:31 12/30/19 23 12/30/2022 COMPR EHENS CHELSEA METAB OLIC PANEL sodium 141 mmol/ L 135-14 6 normal Not Available [address], [address], 12/30/2022 09:01:31 12/30/19 23 12/30/2022 COMPR EHENS CHELSEA METAB OLIC PANEL potassium 3.7 mmol/ L 3.5-5. 3 normal Not Available [address], [address], 12/30/2022 09:01:31 12/30/19 23 12/30/2022 COMPR EHENS CHELSEA METAB OLIC PANEL chloride 105 mmol/ L 98-110 normal Not Available [address], [address], 12/30/2022 09:01:31 12/30/1912/30/2022 COMPR EHENS CHELSEA METAB OLIC PANEL carbon dioxide 30 mmol/ L 20-32 normal Not Available [address], [address], 12/30/2022 09:01:31 12/30/1912/30/2022 COMPR EHENS CHELSEA METAB OLIC PANEL calcium 8.8 mg/dL 8.6-10 .4 normal Not Available [address], [address], 12/30/2022 09:01:31 12/30/1912/30/2022 COMPR EHENS CHELSEA METAB OLIC PANEL protein, total 6.5 g/dL 6.1-8. 1 normal Not Available [address], [address], 12/30/2022 09:01:31 12/30/1912/30/2022 COMPR EHENS CHELSEA METAB OLIC PANEL albumin 4.3 g/dL 3.6-5. 1 normal Not Available [address], [address], 12/30/2022 09:01:31 12/30/1912/30/2022 COMPR EHENS CHELSEA METAB OLIC PANEL globulin 2.2 g/dL_ (calc ) 1.9-3. 7 normal Not Available [address], [address], 12/30/2022 09:01:31 12/30/1912/30/2022 COMPR EHENS CHELSEA METAB OLIC PANEL albumin/glob ulin ratio 2.0 (calc ) 1.0-2. 5 normal Not Available [address], [address], 12/30/2022 09:01:31 12/30/1912/30/2022 COMPR EHENS CHELSEA METAB OLIC PANEL bilirubin, total 1.0 mg/dL 0.2-1. 2 normal Not Available [address] [address] [place], [address], 12/30/2022 09:01:31 12/30/1912/30/2022 COMPR EHENS CHELSEA METAB OLIC PANEL alkaline phosphatase 89 U/L 37-153 normal Not Available [facility] [address] [place], [address], 12/30/2022 09:01:31 12/30/1912/30/2022 COMPR EHENS CHELSEA METAB OLIC PANEL AST 18 U/L 10-35 normal Not Available [address], [address], 12/30/2022 09:01:31 12/30/1912/30/2022 COMPR EHENS CHELSEA METAB OLIC PANEL ALT 23 U/L 6-29 normal Not Available [address] [address] [place], [address], 12/30/2022 09:01:31 12/30/1912/30/2022 HEMOG LOBIN A1C hemoglobin A1C 4.7 %_of_ total _HGB <5.7 normal For the purpo se of adrien alfred for the prese nce of diabe dustin: <5.7% Consi stent with the absen ce of diabe dustin 5.7-6 .4% Consi stent with incre ased risk for diabe dustin (pred iabet es) > or =6.5% Consi stent with diabe dustin This assay resul t is consi stent with a decre ased risk of diabe dustin. Curre ntly, no conse nsus exist s felicia luciano use of hemog lobin A1c for diagn osis of diabe dustin in child robert. Accor ding to Ameri can Diabe dustin Assoc iatio n (ADA) guide lines , hemog lobin A1c <7.0% repre sents optim al contr ol in non-p regna nt diabe tic patie nts. Diffe rent rene cs may apply to speci fic patie nt popul ation s. Stand ards of Medic al Care in Diabe dustin(A DA). Not Available [address] [address] [place], [address], 12/30/2022 09:01:32 12/30/1912/30/2022 CBC (INCL UDES DIFF/ PLT) white blood cell count 4.8 thous and/u L 3.8-10 .8 normal Not Available [facility] [address], [address], 12/30/2022 09:01:33 12/30/1912/30/2022 CBC (INCL UDES DIFF/ PLT) red blood cell count 4.16 marley on/uL 3.80-5 .10 normal Not Available [address], [address], 12/30/2022 09:01:33 12/30/1912/30/2022 CBC (INCL UDES DIFF/ PLT) hemoglobin 13.4 g/dL 11.7-1 5.5 normal Not Available [address], [address], 12/30/2022 09:01:33 12/30/1912/30/2022 CBC (INCL UDES DIFF/ PLT) hematocrit 38.1 % 35.0-4 5.0 normal Not Available [address], [address], 12/30/2022 09:01:33 12/30/1912/30/2022 CBC (INCL UDES DIFF/ PLT) MCV 91.6 fL 80.0-1 00.0 normal Not Available [facility] [address], [address], 12/30/2022 09:01:33 12/30/19 23 12/30/2022 CBC (INCL UDES DIFF/ PLT) MCH 32.2 pg 27.0-3 3.0 normal Not Available [address], [address], 12/30/2022 09:01:33 12/30/1912/30/2022 CBC (INCL UDES DIFF/ PLT) MCHC 35.2 g/dL 32.0-3 6.0 normal Not Available [address], [address], 12/30/2022 09:01:33 12/30/1912/30/2022 CBC (INCL UDES DIFF/ PLT) RDW 12.7 % 11.0-1 5.0 normal Not Available [address], [address], 12/30/2022 09:01:33 12/30/1912/30/2022 CBC (INCL UDES DIFF/ PLT) platelet count 241 thous and/u L 140-40 0 normal Not Available [address], [address], 12/30/2022 09:01:33 12/30/19 23 12/30/2022 CBC (INCL UDES DIFF/ PLT) MPV 10.3 fL 7.5-12 .5 normal Not Available [address], [address], 12/30/2022 09:01:33 12/30/1912/30/2022 CBC (INCL UDES DIFF/ PLT) absolute neutrophils 3182 cells /uL 1500-7 800 normal Not Available [address], [address], 12/30/2022 09:01:33 12/30/1912/30/2022 CBC (INCL UDES DIFF/ PLT) absolute lymphocytes 1075 cells /uL 850-39 00 normal Not Available [address], [address], 12/30/2022 09:01:33 12/30/1912/30/2022 CBC (INCL UDES DIFF/ PLT) absolute monocytes 336 cells /uL 200-95 0 normal Not Available [address], [address], 12/30/2022 09:01:33 12/30/1912/30/2022 CBC (INCL UDES DIFF/ PLT) absolute eosinophils 178 cells /uL 15-500 normal Not Available [address], [address], 12/30/2022 09:01:33 12/30/1912/30/2022 CBC (INCL UDES DIFF/ PLT) absolute basophils 29 cells /uL 0-200 normal Not Available [address], [address], 12/30/2022 09:01:33 12/30/1912/30/2022 CBC (INCL UDES DIFF/ PLT) neutrophils 66.3 % normal Not Available [address], [address], 12/30/2022 09:01:33 12/30/1912/30/2022 CBC (INCL UDES DIFF/ PLT) lymphocytes 22.4 % normal Not Available [address], [address], 12/30/2022 09:01:33 12/30/1912/30/2022 CBC (INCL UDES DIFF/ PLT) monocytes 7.0 % normal Not Available [address], [address], 12/30/2022 09:01:33 12/30/1912/30/2022 CBC (INCL UDES DIFF/ PLT) eosinophils 3.7 % normal Not Available [facility] [address] [place], [address], 12/30/2022 09:01:33 12/30/1912/30/2022 CBC (INCL UDES DIFF/ PLT) basophils 0.6 % normal Not Available [facility] [address], [place], [address], 12/30/2022 09:01:33 10/02/1909/26/2022 MAMMO , scree tima, digit al, bilat eral No observ ation record ed. [email or web address] [facility] [address] [place], [address], 11/10/2022 12:40:33 Result Notes None recorded. Problems Name Problem SNOMED Code Status Onset Date Resolution Date Notes Provider Name and Address Organization Details Recorded Time Apnea 7229769 Active 2022 Not Available [facility] 3 19:28:30 Right flank pain 478732189 Active 2021 Not Available [facility] 3 19:28:31 Thoracic back pain 612146942 Active 2021 Not Available [facility] 3 19:28:31 Sleep disorder 44165282 Active 2022 Not Available [facility] 3 19:28:31 Fatigue 78152519 Active 2022 Not Available [facility] 3 19:28:31 Contact dermatitis caused by urushiol from Eastern poison rosalva 232695199 Active 2022 LON Grider [address], [place], [address] , [employer] [facility] [employer] 3 09:49:57 Weight gain 2213139 Active 2022 LON Grider [address], [place], [address] , [employer] [facility] [employer] 3 13:07:05 Depressive disorder 65238030 Active 2022 LON Grider [address] [facility], [facility] [address], [place], [address] , [facility] [employer] [facility] 3 13:11:02 Lower urinary tract symptoms 993068823 Active 2022 LON Grider [address] [facility], [facility] [address], [place], [address] , [facility] [employer] [facility] 3 13:13:07 Acute upper respiratory infection 13166334 Active 2023 LON Grider [address] [facility], [facility] [address], [place], [address] , [employer] [facility] [employer] 4 11:23:55 Problem Notes None recorded. 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 Medical Equipment None Reported. Allergies Allergen ID Allergen Name Allergen Category Reaction Reaction Severity Criticality Documentation Date Start Date Code Code System Note Provider Name and Address Organization Details Recorded Time 04252 codeine medicatio n vomiting Not available Not available 05/14/2022 2670 RxNorm Not Available [facility] 3 19:29:12 Medications Name Sig Start Date Stop Date Status Note LastModified by Organization Details LastModified Time prednisone 20 mg tablet PLEASE SEE ATTACHED FOR DETAILED DIRECTION S 11/07 completed Not Available Not Available Not Available bupropion HCl SR 100 mg tablet,12 hr sustained-r elease TAKE 1 TABLET BY MOUTH IN THE MORNING active Not Available Not Available No t Available oxybutynin chloride ER 5 mg tablet,exte nded release 24 hr TAKE 1 TABLET BY MOUTH ONCE DAILY active Not Available Not Available No t Available amoxicillin 875 mg-potassiu m clavulanate 125 mg tablet TAKE 1 TABLET EVERY 12 HOURS BY ORAL ROUTE WITH MEAL(S). active Not Available Not Available No t Available nitrofurant oin monohydrate /macrocryst als 100 mg capsule TAKE 1 CAPSULE BY MOUTH EVERY 12 HOURS active Not Available Not Available No t Available Vitamin C 2022 active Not Available Not Available Not Avai lable Vitamin B12 2022 active Not Available Not Available Not Avai lable Vitamin D2 2022 active Not Available Not Available Not Avai lable Vitals Date Recorded Body mass index (BMI) Body height Oxygen saturation Oxygen saturation in Arterial blood by Pulse oximetry Heart rate Body temperature Body weight Systolic blood pressure Diastolic blood pressure Provider Name and Address Organization Details Last Updated DateTime 1 22.7 kg/m2 162.56 cm 99 % 99 % 104 /min 97.8 [degF] 53240.2 7 g 110 mm[Hg] 70 mm[Hg] Not Available [facility] 3 19:28:12 Date Recorded Body mass index (BMI) Body height Oxygen saturation Oxygen saturation in Arterial blood by Pulse oximetry Heart rate Respiratory rate Body temperature Body weight Systolic blood pressure Diastolic blood pressure Provider Name and Address Organization Details Last Updated DateTime 2 23.9 kg/m2 162.56 cm 98 % 98 % 72 /min 16 /min 97.6 [degF] 32605.3 4 g 120 mm[Hg] 80 mm[Hg] Not Available [facility] 3 19:28:13 Date Recorded Body mass index (BMI) Body height Oxygen saturation Oxygen saturation in Arterial blood by Pulse oximetry Heart rate Respiratory rate Body temperature Body weight Systolic blood pressure Diastolic blood pressure Provider Name and Address Organization Details Last Updated DateTime 3 24.8 kg/m2 162.56 cm 98 % 98 % 91 /min 16 /min 97.3 [degF] 18270.1 g 118 mm[Hg] 78 mm[Hg] Not Available [facility] 3 19:28:13 Date Recorded Body height Body temperature Body mass index (BMI) Body weight Respiratory rate Oxygen saturation Oxygen saturation in Arterial blood by Pulse oximetry Heart rate Systolic blood pressure Diastolic blood pressure Provider Name and Address Organization Details Last Updated DateTime 3 162.56 cm 98.1 [degF] 24.6 kg/m2 35529.5 1 g 16 /min 98 % 98 % 104 /min 118 mm[Hg] 78 mm[Hg] Joann ePoples, [facility] 12:27:59 Social History Question Answer Notes LastModified by Organizat ion Details LastModified Time Tobacco Smoking Status Never Smoker Not Available [facility] 05/14/2022 19:27:45 Do You Have An Advance Directive? No [id number] Information not available 05/14/2022 What Is Your Level Of Alcohol Consumption? Occasional [id number].[id number] 7874 Information not available 05/14/2022 If You Are , What Was Your Level Of Alcohol Consumption Prior To ? None [id number].[id number] 9952 Information not available 05/14/2022 Do You Wear A Helmet When Biking? Yes [id number].[id number] 1867 Information not available 05/14/2022 What Is Your Level Of Caffeine Consumption? Moderate MIGRATION.[id number] 1386 Information not available 05/14/2022 In The 14 Days Before Symptom Onset, Have You Had Close Contact With A Laboratory-confir med COVID-19 While That Case Was Ill? No MIGRATION.[id number] 3577 Information not available 05/14/2022 In The 14 Days Before Symptom Onset, Have You Had Close Contact With A Person Who Is Under Investigation For COVID-19 While That Person Was Ill? No MIGRATION.[id number] 2136 Information not available 05/14/2022 Are You Currently Employed? Yes [email or web address] Information not available 11/07/2022 What Type Of Diet Are You Following? REGULAR MIGRATION.289966 3564 Information not available 05/14/2022 What Is The Highest Grade Or Level Of School You Have Completed Or The Highest Degree You Have Received? 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 No MIGRATION.634579 0762 Information not available 05/14/2022 Are There Any Guns Present In Your Home? No MIGRATION.166447 2333 Information not available 05/14/2022 Do You Use Insect Repellent Routinely? No MIGRATION.947236 5033 Information not available 05/14/2022 Do You Have A Medical Power Of Systems Spec? No MIGRATION.164365 9990 Information not available 05/14/2022 What Is Your Relationship Status? Single MIGRATION.408468 3011 Information not available 05/14/2022 Do You Use Your Seat Belt Or Car Seat Routinely? Yes MIGRATION.228835 4803 Information not available 05/14/2022 Do You Have Smoke And Carbon Monoxide Detectors In Your Home? Yes MIGRATION.757597 1403 Information not available 05/14/2022 Do You Feel Stressed (tense, Restless, Nervous, Or Anxious, Or Unable To Sleep At Night)? [id number] MIGRATION.259112 4694 Information not available 05/14/2022 Do You Use Any Illicit Or Recreational Drugs? No MIGRATION.029112 1741 Information not available 05/14/2022 Do You Use Sunscreen Routinely? Yes MIGRATION.379937 1220 Information not available 05/14/2022 Has Tobacco Cessation Counseling Been Provided? No MIGRATION.563212 9476 Information not available 05/14/2022 Have You Recently Traveled Abroad? No MIGRATION.541692 3386 Information not available 05/14/2022 Do You Have Any Dietary Restrictions? No MIGRATION.392738 6639 Information not available 05/14/2022 Do You Or Have You Ever Used Any Other Forms Of Tobacco Or Nicotine? No MIGRATION.549172 0553 Information not available 05/14/2022 Sex: Unknown Functional Status Question Answer Note LastModified by Organizat ion Details LastModified Time What is your exercise level? Heavy [id number].[id number] Information not available 05/14/2022 Mental Status None recorded. Family History Relationship Description Onset Age of this Age Resolved Age Notes LastModified by Organization Details LastModified Time Father Diabetes mellitus [id number] Not available 05/14/2022 19:27:57 Father Carcinoma of prostate [email or web address] Not available 11/10 12:12:16 Father Coronary arterioscler osis [email or web address] Not available 11/10 12:12:16 Mother Diabetes mellitus [id number] [id number] Not available 05/14/2022 19:27:57 Maternal Grandmother Malignant tumor of breast [email or web address] Not available 11/10 12:12:16 Medical History Condition Response CARDIAC ARRHYTHMIA Y HEADACHES/MIGRAINES Y ANXIETY DISORDER Y DEPRESSION (INCLUDING POST ) Y Gynecological History Statement/Question Response Abnormal Pap Y Date of Last Pap 03/16/2016 Date of Last Mammogram 11/18/2019 Sexually Active? Y Obstetrics History GPAL:G 0 P 0 0 0 0 Past Encounters Encounter ID Performer Location Encounter Start Date Encounter Closed Date Diagnosis/Indication Diagnosis SNOMED-CT Code Diagnosis ICD10 Code Diagnosis Note [id number] [facility] [place] [address] [place] [address] 11/06/2020 00:00:00 11/11/2020 19:45:51 [id number] [facility] [place] [address] [place] [address] 11/08/2021 00:00:00 11/13/2021 20:22:03 [id number] [facility] [place] [address] [place] [address] 03/31/2022 00:00:00 04/15/2022 21:53:20 [id number] LON Grider [facility] [place] [address] [place] [address] 11/10/2022 12:11:18 11/10/2022 13:51:13 Adult health examination 035706529 Z00.00 well exam completed. labs ordered. Cholesterol screening 27 2748189 Z13.220 fasting lipids ordered Diabetes m ellitus screening 718349664 Z13.1 screening a1c due Weight gain 1707456 R63. 5 screening TFTs ordered Depressive disorder 3548 9007 F32.A start trial of wellbutrin SR 100mg daily in the AM only for now. Lower urin lauren tract symptoms 802692395 R39.9 Rx for macrobid. Health Concerns Section Related Observation LastModified by Organization Detai ls LastModified Time None Recorded Concern Status LastModified by Organization Details LastModified Time None Recorded Advance Directives Directive N: Payers Encounter Date Sequence Insurance Name Policy Number Policy Sagastume Covered Member ID Sagastume Member ID Guarantor Name 11/10/2022 1 [place] [id number] Jocy Mitchell [id number] Jocy Mitchell Notes Date Note Type Note Provider Name and Address Organization Details Recorded Time 11/06/2020 text/html Generic HPI TemplateReported bypatient.Notes:Pt is here today for her wellness exam, doing fine, no complaints Not Available [facility] 11/11/2020 19:45:51 11/08/2021 text/html Generic HPI TemplateReported bypatient.Notes:Pt is here for her wellness. No chronic prob/meds. She does continue to have back pain but she did start her menstrual cycle this morning. Not Available [facility] 11/13/2021 20:22:03 03/31/2022 text/html FatigueReported bypatient.Status:acut e; no change in symptoms Quality:generalized; symptoms worse during the morning Severity:normal activity; improving;change in sleep patterns;change in exercise habits Duration:constant; symptoms lasting over 2 weeks Timing:gradual; actual date: (3 months) Context:symptoms improve when at home versus on the job Modifying Factors:no new stressors in life; taking vitamins Associated Symptoms:no depression; no alcohol consumption; no anxiety; no snoring; no apnea; no weight loss; no weight gain; no chest pain; no joint pain; no rash; no SOB; no dizziness; no sore throat; no joint pain; no exertional fatigue; no tender, swollen glands; no fever;sleep disturbances;unrefres indira sleep;palpitations(ve ry rare);headache with onset after the fatigue(dull ache in the morning) Not Available [facility] 04/15/2022 21:53:20 11/10/2022 text/html Generic HPI TemplateReported bypatient.Notes:Pt is here for her wellness. No chronic problems. Wellness LON Grider [address] [facility], [facility] [address], [place], [address], [facility] 11/11/2022 09:02:36 OBGyn Episode No OBEpisode recorded.
--- OUTSIDE RECORDS SUMMARY | 2024-04-07 15:35 | XMS_ITS | Clinical Summary ---
Author Organization [facility] Address [address] [place] [address]. [place] [address] [place] [address] Care Team Providers Care Instrument Assembler Name Role Phone Unavailable Primary Care Provider Unavailabl e Allergies Active Allergy Reactions Criticality Noted Date Comments Bee Venom Unknown 04/06/2024 Codeine Unknown 04/06/2024 Social History Tobacco Use Types Packs/Day Years Used Date Smoking Tobacco: Never Assessed Comments Unknown Sex and Gender Information Value Date Recorded Sex Assigned at Not on file Legal Sex Female 9:48 AM TAPPER HELPER Gender Identity Not on file Sexual Orientation Not on file Plan of Treatment Upcoming Encounters Date Type Department Care Team (Late st Contact Info) Description 04/19/2024 7:30 AM TAPPER HELPER Hospital Encounter [facility] [place] [address] David Little IV, MD [address] [place], [place] [id number] 04/19/2024 7:30 AM TAPPER HELPER - 04/19/2024 8:15 AM TAPPER HELPER Surgery [facility] Endo/[place] [address] David Little IV, MD [address] [place] [address] [phone] COLONOSCOPY Scheduled Procedures Name Priority Associated Diagnoses Date/Ti me COLONOSCOPY Screening 04/19/2024 7:30 AM TAPPER HELPER Health Maintenance Due Date Last Done Comments Cervical Cancer Screening Pa p Smear (Age 30 to 64) Every 3 Years 1972 Colorectal Cancer Screening Colonoscopy (10 Years) 1972 Annual Physical 1975 Hepatitis C 1990 DTaP, Tdap and Td Vaccines ( 1 - Tdap) 1991 Hepatitis B Vaccines (1 of 3 - 19+ 3-dose series) 1991 Cervical Cancer Screening Pa p with HPV Testing (Age 30 to 64) Every 5 Years 2002 Cervical Cancer Screening with HPV 2002 Mammogram Screening 2012 Zoster Vaccines (1 of 2) 2022 COVID-19 Vaccine (2023-2 5 season) 2023 Influenza Adult (#1) 2023 Meningococcal B Vaccine Aged Out No l onger eligible based on patient's age to complete this topic Meningococcal Vaccine Aged Out No luis dora eligible based on patient's age to complete this topic Pneumococcal Vaccine: Pediat rics (0 to 5 Years) and At-Risk Patients (6 to 64 Years) Aged Out No longer eligible b ased on patient's age to complete this topic RSV Immunizations Under 20 Months Aged Out No longer eligible based on patient's age to complete this topic
--- OUTSIDE RECORDS SUMMARY | 2024-04-07 15:35 | XMS_ITS | Referral Summary ---
Author Organization [facility] [address] [facility] Address [address] [place] [address] Care Team Providers Care Escalator Service Mechanic Name Role Phone Annemarie Hill Primary Care Provider [phone]- [phone] Allergies Active Allergy Reactions Criticality Noted Date Comments Codeine Vomiting Low 04/10/2023 Guaifenesin Unknown 03/23/2012 Ingredients possibly Codeine Venom-Honey Bee Anaphylaxis High 03/23/2012 Medications omeprazole (PriLOSEC) 40 mg capsule Take 1 capsule (40 mg total) by mouth daily 90 capsule 1 4 Active buPROPion SR (WELLBUTRIN SR) 100 mg 12 hr tablet Take 1 tablet (100 mg total) by mouth every morning Active escitalopram (LEXAPRO) 20 mg tablet Take 1 tablet (20 mg total) by mouth daily 90 tablet 1 4 Active oxyBUTYnin XL (DITROPAN-XL) 5 mg 24 hr tablet Take 1 tablet (5 mg total) by mouth daily 4 Active estradioL (ESTRACE) 0.01 % (0.1 mg/gram) vaginal cream USE 1 GRAM VAGINALLY TWICE A WEEK 4 Active cyanocobalamin (vitamin B-12) 1,000 mcg tablet 3 Active ergocalciferol, vitamin D2, (VITAMIN D2 ORAL) 3 Active VITAMIN C, ASCORBATE CALCIUM, ORAL 3 Active progesterone (PROMETRIUM) 100 mg capsule Take 1 capsule (100 mg total) by mouth daily Active Active Problems Problem Noted Date Diagnosed Date BMI 24.0-24.9, adult 11/22/2023 Assessment & Plan (11/22/2023 9:52 PM CDT): Weight/BMI is in healthy range. Continue healthy lifestyle to maintain. Colon cancer screening 11/22/2023 Assessment & Plan (11/22/2023 9:52 PM CDT): Colon cancer screening due. Reviewed screening options and prefers colonoscopy. Order placed for [facility] Arthralgia 11/22/2023 Assessment & Plan (11/22/2023 9:52 PM CDT): Patient complains of persistent arthralgias as well as fatigue. Check LAURA Elevated bilirubin 08/12/2023 Assessment & Plan (08/12/2023 2:57 PM CDT): Last labs revealed an elevated bili. She does not have any icterus or jaundice. Recommend rechecking labs. Will go ahead and check a hepatitis panel in addition. If still elevated will need an ultrasound of the liver further workup. Hypokalemia 06/06/2023 Assessment & Plan (06/06/2023 2:47 PM CDT): Check labs Dry mouth 06/06/2023 Assessment & Plan (06/06/2023 2:47 PM CDT): Persistent dry mouth. Could be secondary to medications but will check an LAURA to rule out autoimmune cause Dysuria 04/13/2023 Assessment & Plan (11/22/2023 9:53 PM CDT): Persistent dysuria and recurrent UTIs. Empirically treat with Bactrim DS b.i.d. x5. Recheck urine culture for infection. Treat appropriately if needed. Another infection is present she may benefit from a referral to Urology for further evaluation of recurrent UTIs and overactive bladder Assessment & Plan (08/12/2023 2:54 PM CDT): Persistent urinary symptoms. There is hematuria present today. Will send for culture. If negative will need urology consult for hematuria workup. If does show an infection will treat appropriately. Will await culture to determine treatment plan. Encouraged increased fluids and avoid caffeine Assessment & Plan (04/13/2023 12:03 AM SATELLITE SPECIALIST): This is a significant, separately identifiable problem that was evaluated and managed on the same day as the wellness exam Patient has noticed malodorous urine. Will check urine culture. Situational stress 04/13/2023 Assessment & Plan (11/22/2023 9:51 PM CDT): Continue Lexapro 20 Wellbutrin SR 100 b.i.d. Will check urine culture to see if that is contributing as infection can contribute to fatigue and stress. Will also check her LAURA to see if this could be involved. Assessment & Plan (06/06/2023 2:47 PM CDT): Continued situational stressors. Patient has seen improvement with the Lexapro but still room for improvement so will increase the Lexapro to 20. Continue Wellbutrin SR 100 b.i.d. Assessment & Plan (04/13/2023 12:03 AM SATELLITE SPECIALIST): This is a significant, separately identifiable problem that was evaluated and managed on the same day as the wellness exam Patient is feeling overwhelmed. Discussed treatment options including risks benefits alternatives side effects and proper use of medications. Start Lexapro 10. Follow-up in 4-6 weeks to reassess or sooner for any other problems or concerns OAB (overactive bladder) 04/13/2023 Assessment & Plan (04/13/2023 12:02 AM SATELLITE SPECIALIST): Continue oxybutynin. Refills to pharmacy Gastroesophageal reflux disease without esophagi tis 04/13/2023 Assessment & Plan (11/22/2023 9:51 PM CDT): Continue omeprazole 40 this plan persistent situational stress. Assessment & Plan (06/06/2023 2:47 PM CDT): Continue PPI p.r.n. Assessment & Plan (04/13/2023 12:05 AM SATELLITE SPECIALIST): Discussed GERD at length including anatomy, behavioral changes (anti-reflux maneuvers, avoid acidic foods like oranges and tomatoes., avoidance of spicy foods, avoid eating 3-4 hours before bed, elevation of the head of the bed), weight loss and medication options for treatment. Followup if sxs worsen or has hematochezia or hematemeis. Start omeprazole. Reviewed risks benefits alternatives side effects and proper use Resolved Problems Problem Noted Date Diagnosed Date Resolved Date Urinary tract infection without hematuria 06/06/2023 06/06/2023 Assessment & Plan (06/06/2023 2:47 PM CDT): Patient with urinary symptoms. Will check culture to rule out infection. Frequency of urination 06/06/202308/11 Assessment & Plan (06/06/2023 2:48 PM CDT): Urinary frequency symptoms have increased. Will check urine culture and dip to determine possible underlying infection. BMI 23.0-23.9, adult 04/13/2023 024 Assessment & Plan (08/12/2023 2:53 PM CDT): Weight/BMI is in healthy range. Continue healthy lifestyle to maintain. Assessment & Plan (06/06/2023 2:47 PM CDT): Weight/BMI is in healthy range. Continue healthy lifestyle to maintain. Assessment & Plan (04/13/2023 12:03 AM SATELLITE SPECIALIST): Weight/BMI is in healthy range. Continue healthy lifestyle to maintain. Diabetes mellitus screening 04/13/2023 11/22/2023 Assessment & Plan (04/13/2023 12:03 AM SATELLITE SPECIALIST): Check labs Lipid screening 04/13/2023 11/22/2023 Assessment & Plan (04/13/2023 12:03 AM SATELLITE SPECIALIST): Check labs Fatigue 04/13/2023 11/22/2023 Assessment & Plan (08/12/2023 2:53 PM CDT): Probably multifactorial. Check labs and followup to re-evaluate Assessment & Plan (04/13/2023 12:03 AM SATELLITE SPECIALIST): Probably multifactorial. Check labs and followup to re-evaluate Annual physical exam 04/13/2023 024 Assessment & Plan (04/13/2023 12:03 AM SATELLITE SPECIALIST): Encouraged healthy lifestyle, good nutrition and exercise. Encouraged Calcium and Vitamin D and weight bearing exercise for bone health. Reviewed immunizations Reviewed age appropirate screenings. Immunizations Name Administration Dates Next Due Influenza, Unspecified 03/16/2023(Deferr ed: Patient Refused),03/16/2023(Deferred: Patient Refused),03/16/2023(Deferred: Patient Refused) Social History Tobacco Use Types Packs/Day Years Used Date Smoking Tobacco: Never Smokeless Tobacco: Never Tobacco Cessation:Counseling Given: Not Answered AUDIT-C Answer Date Recorded Q1: How often do you have a drink containing alcohol? Never 11/11/2023 Q2: How many drinks containi ng alcohol do you have on a typical day when you are drinking? Patient does not drink Q3: How often do you have si x or more drinks on one occasion? 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 Not on file Not on file Not on file Last Filed Vital Signs Vital Sign Reading Time Taken Comments Blood Pressure 110/70 11/11/2023 8:59 AM CDT Pulse 74 11/11/2023 8:59 AM CDT Temperature 36.6 ??C (97.9 ??F) 11/11/2023 8:59 AM CD T Respiratory Rate - - Oxygen Saturation 99% 11/11/2023 8:59 AM CDT Inhaled Oxygen Concentration - - Weight 65.7 kg (144 lb 14.4 oz) 11/11/2023 8:59 AM CDT Height 163.8 cm (5' 4.5 ) 11/11/2023 8:59 AM CDT Body Mass Index 24.49 11/11/2023 8:59 AM CDT Plan of Treatment Not on file Procedures Procedure Name Priority Date/Time Associated Diagnosis Comments HEPATITIS PANEL, ACUTE Routine 09/16/2023 9:35 AM CDT from Last 3 Months or Most Recently Relevant to Health Maintenance Results * Hepatitis panel, acute (09/16/2023 9:35 AM CDT) Hep A IgM NON-REACTI VE NON-REACT [facility]SEA [facility] Comment: For additional information, please refer to http://Apogenix/faq/EIT116 (This link is being provided for informational/ educational purposes only.) HepBsAg NON-REACTI VE NON-REACT CHELSEA [facility] Comment: For additional information, please refer to http://Apogenix/faq/KLX734 (This link is being provided for informational/ educational purposes only.) Hep B core IgM NON-REACTI VE NON-REACT CHELSEA [facility] Comment: For additional information, please refer to http://Apogenix/faq/MXN104 (This link is being provided for informational/ educational purposes only.) Hep C Ab NON-REACTI VE NON-REACT CHELSEA [facility] Comment: HCV antibody was non-reactive. There is no laboratory evidence of HCV infection. In most cases, no further action is required. However, if recent HCV exposure is suspected, a test for HCV RNA (test code 16902) is suggested. For additional information please refer to http://Apogenix/faq/YQJ87p6 (This link is being provided for informational/ educational purposes only.) 09/16/2023 9:35 AM CDT 09/16/2023 9:36 AM CDT Narrative [facility] - 09/17/2023 8:19 AM CDT FASTING:YES FASTING: YES Annemarie FORREST LAB MICROBIOLOGY - GENERAL ORDERABLES Final Result [facility] [address] [facility] [place] [phone] from Last 3 Months or Most Recently Relevant to Health Maintenance Insurance [employer] Care Teams Escalator Service Mechanic Relationship Specialty Start Date End Date Annemarie Hill PA [address] [place] [address] PCP - General Internal Medicine 04/08/23
--- OUTSIDE RECORDS SUMMARY | 2024-04-07 15:35 | XMS_ITS | Clinical Summary ---
Author Organization [facility] [address] [facility] Address [address] [place] [address] Care Team Providers Care Port Captain Name Role Phone Annemarie Hill Primary Care Provider +1- [phone] Allergies Active Allergy Reactions Criticality Noted Date [...] options and prefers colonoscopy. Order placed for [facility] Arthralgia 11/22/2023 Assessment & Plan (11/22/2023 9:52 [...] caffeine Assessment & Plan (04/13/2023 12:03 AM BUREAU DIRECTOR): This is a significant, separately identifiable problem [...] b.i.d. Assessment & Plan (04/13/2023 12:03 AM BUREAU DIRECTOR): This is a significant, separately identifiable problem [...] 04/13/2023 Assessment & Plan (04/13/2023 12:02 AM BUREAU DIRECTOR): Continue oxybutynin. Refills to pharmacy Gastroesophageal reflux disease without esophagi tis 04/13/2023 Assessment & Plan (11/22/2023 9:51 PM CDT): Continue omeprazole 40 this plan persistent situational stress. Assessment & Plan (06/06/2023 2:47 PM CDT): Continue PPI p.r.n. Assessment & Plan (04/13/2023 12:05 AM BUREAU DIRECTOR): Discussed GERD at length including anatomy, behavioral [...] maintain. Assessment & Plan (04/13/2023 12:03 AM BUREAU DIRECTOR): Weight/BMI is in healthy range. Continue healthy lifestyle to maintain. Diabetes mellitus screening 04/13/2023 11/22/2023 Assessment & Plan (04/13/2023 12:03 AM BUREAU DIRECTOR): Check labs Lipid screening 04/13/2023 11/22/2023 Assessment & Plan (04/13/2023 12:03 AM BUREAU DIRECTOR): Check labs Fatigue 04/13/2023 11/22/2023 Assessment & Plan (08/12/2023 2:53 PM CDT): Probably multifactorial. Check labs and followup to re-evaluate Assessment & Plan (04/13/2023 12:03 AM BUREAU DIRECTOR): Probably multifactorial. Check labs and followup to re-evaluate Annual physical exam 04/13/2023 024 Assessment & Plan (04/13/2023 12:03 AM BUREAU DIRECTOR): Encouraged healthy lifestyle, good nutrition and exercise. Encouraged Calcium and Vitamin D and weight bearing exercise for bone health. Reviewed immunizations Reviewed age appropirate screenings. 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 Not on file Not on file Obstetrics History Last Filed Vital Signs Vital Sign Reading [...] 11/11/2023 8:59 AM CDT Plan of Treatment Health Maintenance Due Date Last Done Comments Breast Cancer Screening-Mammogram 1972 Cervical Cancer Screening 1972 Colon Cancer Screening-Colonoscopy 1972 DTaP/Tdap/Td Vaccine (1 - Tdap) 1983 Hepatitis B Screening 1990 Zoster Vaccine (1 of 2) 2022 Covid-19 Vaccine ( season) 2023 03/20/2021, 07/05/2020, 06/12/2020 Influenza Vaccine (#1) 2023 Regular Well Visit/Exam 18-64 04/10/2024 04/10/2023 Depression Screening 11/10/2024 11/11/2023, 08/11/2023, 05/15/2023, Additional history exists Hepatitis C Screening Completed 09/16/2023 Pneumococcal vaccine <65 Aged Out No longer eligible based on patient's age to complete this topic Procedures Procedure Name Priority Date/Time Associated Diagnosis Comments HEPATITIS PANEL, ACUTE Routine 09/16/2023 9:35 AM CDT from Last 3 Months or Most Recently Relevant to Health Maintenance Results * Hepatitis panel, acute (09/16/2023 9:35 AM CDT) Hep A IgM NON-REACTI VE NON-REACT CHELSEA [facility] Comment: For additional information, please refer to http://education.[employer].iAdvize/faq/SCD861 (This link is being provided for informational/ educational purposes only.) HepBsAg NON-REACTI VE NON-REACT CHELSEA [facility] Comment: For additional information, please refer to http://iCopyright.ClarityAd/faq/RIY920 (This link is being provided for informational/ educational purposes only.) Hep B core IgM NON-REACTI VE NON-REACT CHELSEA [facility] Comment: For additional information, please refer to http://Agolo/faq/ZII611 (This link is being provided for informational/ educational purposes only.) Hep C Ab NON-REACTI VE NON-REACT CHELSEA [facility] Comment: HCV antibody was non-reactive. There is no laboratory evidence of HCV infection. In most cases, no further action is required. However, if recent HCV exposure is suspected, a test for HCV RNA (test code 98335) is suggested. For additional information please refer to http://Agolo/faq/PBU74a1 (This link is being provided for informational/ educational purposes only.) 09/16/2023 9:35 AM CDT 09/16/2023 9:36 AM CDT Narrative [facility] - 09/17/2023 8:19 AM CDT FASTING:YES FASTING: YES Annemarie FORREST LAB MICROBIOLOGY - GENERAL ORDERABLES Final Result [facility] [address] [place] [address] from Last 3 Months or Most Recently Relevant to Health Maintenance Insurance [employer]F PPO [place] Care Teams Port Captain Relationship Specialty Start Date End Date Annemarie Hill PA [address] [facility] [address] [place] [address] PCP - General Internal Medicine 04/08/23
== END 2024-04-05 07:23 | disposition home or self-care (01) ==
PROVIDERS: PCP Physician Assistant; Visit Provider Urology
DX: N20.0 Calculus of kidney (principal)
CPT/HCPCS: 74178; Q9967

== ENCOUNTER 2024-05-05 11:13 | Outpatient (CLI) | payer BC, SELFPAY ==
--- OUTSIDE RECORDS SUMMARY | 2024-05-05 11:40 | XMS_ITS | Referral Summary ---
Author Organization [facility] [address] [facility] Address [facility] [place] [address] Care Team Providers Care Automatic Line Set Up Mechanic Name Role Phone Annemarie Hill Primary Care Provider [phone]- [phone] Encounters Date Type Department Care Team Description 2024 Orders Only [address] [place] [phone] Roby Hernandez MD 04/25/2024 10:00 AM FIXER BOARDING ROOM Office Visit [address] [place] [phone] Annemarie Hill PA Annual physical exam (Primary Dx); BMI 26.0-26.9,adult; Daytime sleepiness 04/22/2024 Orders Only [address] [address] ProviderRoby MD from Last 3 Months Allergies Active Allergy Reactions Criticality Noted Date Comments Codeine Vomiting Low 04/10/2023 Guaifenesin Unknown 03/23/2012 Ingredients possibly Codeine Venom-Honey Bee Anaphylaxis High 03/23/2012 Medications omeprazole (PriLOSEC) 40 mg capsule Take 1 capsule (40 mg total) by mouth daily 90 capsule 1 04/25/19 25 Active cyanocobalamin (vitamin B-12) 1,000 mcg tablet Take 1 tablet (1,000 mcg total) by mouth daily 04/25/19 25 Active ascorbate calcium, vitamin C, (Vitamin C, ascorbate calcium,) 814 mg/gram powder Take 500 mg by mouth daily 04/25/19 25 Active ergocalciferol (Vitamin D2) 50,000 unit capsule Take 1 capsule (50,000 Units total) by mouth once a week 04/25/19 25 Active omeprazole (PriLOSEC) 40 mg capsule Take 1 capsule (40 mg total) by mouth daily 90 capsule 1 04/10/19 025 Discontinued(Re order) buPROPion SR (WELLBUTRIN SR) 100 mg 12 hr tablet Take 1 tablet (100 mg total) by mouth every morning 025 Discontinued escitalopram (LEXAPRO) 20 mg tablet Take 1 tablet (20 mg total) by mouth daily 90 tablet 1 05/15/19 025 Discontinued oxyBUTYnin XL (DITROPAN-XL) 5 mg 24 hr tablet Take 1 tablet (5 mg total) by mouth daily 07/10/19 025 Discontinued estradioL (ESTRACE) 0.01 % (0.1 mg/gram) vaginal cream USE 1 GRAM VAGINALLY TWICE A WEEK 07/09/19 025 Discontinued cyanocobalamin (vitamin B-12) 1,000 mcg tablet 03/31/19 025 Discontinued(Re order) ergocalciferol , vitamin D2, (VITAMIN D2 ORAL) 03/31/19 025 Discontinued(Re order) VITAMIN C, ASCORBATE CALCIUM, ORAL 03/31/19 025 Discontinued(Re order) progesterone (PROMETRIUM) 100 mg capsule Take 1 capsule (100 mg total) by mouth daily 025 Discontinued Active Problems Problem Noted Date Diagnosed Date BMI 26.0-26.9,adult 04/25/2024 Assessment & Plan (04/25/2024 10:03 AM FIXER BOARDING ROOM): Discussed the patient's BMI. The BMI is above average. BMI management plan is completed. BMI Follow-up includes: nutrition counseling, exercise counseling and education provided. Annual physical exam 04/25/2024 BMI 24.0-24.9, adult 11/22/2023 Assessment & Plan (11/22/2023 9:52 PM CDT): Weight/BMI is in healthy range. Continue healthy lifestyle to maintain. Colon cancer screening 11/22/2023 Assessment & Plan (11/22/2023 9:52 PM CDT): Colon cancer screening due. Reviewed screening options and prefers colonoscopy. Order placed for [facility] group Arthralgia 11/22/2023 Assessment & Plan (11/22/2023 9:52 [...] caffeine Assessment & Plan (04/13/2023 12:03 AM FIXER BOARDING ROOM): This is a significant, separately identifiable problem [...] b.i.d. Assessment & Plan (04/13/2023 12:03 AM FIXER BOARDING ROOM): This is a significant, separately identifiable problem [...] 04/13/2023 Assessment & Plan (04/13/2023 12:02 AM FIXER BOARDING ROOM): Continue oxybutynin. Refills to pharmacy Gastroesophageal reflux disease without esophagi tis 04/13/2023 Assessment & Plan (11/22/2023 9:51 PM CDT): Continue omeprazole 40 this plan persistent situational stress. Assessment & Plan (06/06/2023 2:47 PM CDT): Continue PPI p.r.n. Assessment & Plan (04/13/2023 12:05 AM FIXER BOARDING ROOM): Discussed GERD at length including anatomy, behavioral [...] maintain. Assessment & Plan (04/13/2023 12:03 AM FIXER BOARDING ROOM): Weight/BMI is in healthy range. Continue healthy lifestyle to maintain. Diabetes mellitus screening 04/13/2023 11/22/2023 Assessment & Plan (04/13/2023 12:03 AM FIXER BOARDING ROOM): Check labs Lipid screening 04/13/2023 11/22/2023 Assessment & Plan (04/13/2023 12:03 AM FIXER BOARDING ROOM): Check labs Fatigue 04/13/2023 11/22/2023 Assessment & Plan (08/12/2023 2:53 PM CDT): Probably multifactorial. Check labs and followup to re-evaluate Assessment & Plan (04/13/2023 12:03 AM FIXER BOARDING ROOM): Probably multifactorial. Check labs and followup to re-evaluate Annual physical exam 04/13/2023 024 Assessment & Plan (04/13/2023 12:03 AM FIXER BOARDING ROOM): Encouraged healthy lifestyle, good nutrition and exercise. Encouraged Calcium and Vitamin D and weight bearing exercise for bone health. Reviewed immunizations Reviewed age appropirate screenings. Immunizations Immunization Administration Dates Next Due Influenza, Unspecified 03/16/2023(Deferr ed: Patient Refused),03/16/2023(Deferred: Patient Refused),03/16/2023(Deferred: Patient Refused) Social History Tobacco Use Types Packs/Day Years Used Date Smoking Tobacco: Never Smokeless Tobacco: Never Tobacco Cessation:Counseling Given: Not Answered AUDIT-C Answer Date Recorded Q1: How often do you have a drink containing alc ohol? Monthly or less 04/25/2024 Q2: How many drinks containi ng alcohol do you have on a typical day when you are drinking? 1 or 2 04/25/2024 Q3: How often do you have si x or more drinks on one occasion? 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 Not on file Not on file Not on file Last Filed Vital Signs Vital Sign Reading Time Taken Comments Blood Pressure 112/84 04/25/2024 9:59 AM FIXER BOARDING ROOM Pulse 79 04/25/2024 9:59 AM FIXER BOARDING ROOM Temperature 36.5 C (97.7 F) 04/25/2024 9:59 AM FIXER BOARDING ROOM Respiratory Rate - - Oxygen Saturation 98% 04/25/2024 9:59 AM FIXER BOARDING ROOM Inhaled Oxygen Concentration - - Weight 69.9 kg (154 lb) 04/25/2024 9:59 AM FIXER BOARDING ROOM Height 163.8 cm (5' 4.49 ) 04/25/2024 9:59 AM CS T Body Mass Index 26.04 04/25/2024 9:59 AM FIXER BOARDING ROOM Plan of Treatment Not on file Procedures Procedure Name Priority Date/Time Associated Diagnosis Comments MAMMOGRAPHY Routine 2024 3:01 PM FIXER BOARDING ROOM MAMMOGRAPHY Routine 2024 3:00 PM FIXER BOARDING ROOM COLONOSCOPY Routine 04/19/2024 1:50 PM FIXER BOARDING ROOM HEPATITIS PANEL, ACUTE Routine 09/16/2023 9:35 AM CDT from Last 3 Months or Most Recently Relevant to Health Maintenance Results * MAMMOGRAPHY (2024 3:01 PM FIXER BOARDING ROOM) Mammography Normal Impressions La Guillen, HALEIGH - 2024 3:01 PM FIXER BOARDING ROOM BIRADS 2-Benign [facility] Provider HEALTH MAINTENANCE Edited Result - Final * MAMMOGRAPHY (2024 3:00 PM FIXER BOARDING ROOM) [facility] Provider MD HEALTH MAINTENANCE Final Result * (ABNORMAL) COLONOSCOPY (04/19/2024 1:50 PM FIXER BOARDING ROOM) Scribed Colonoscopy Unknown [facility] Provider HEALTH MAINTENANCE Edited Result - Final * Hepatitis panel, acute (09/16/2023 9:35 AM CDT) Hep A IgM NON-REACTI VE NON-REACT [facility] Comment: For additional information, please refer to http://education.Cluepedia.Exitround/faq/ZPX770 (This link is being provided for informational/ educational purposes only.) HepBsAg NON-REACTI VE NON-REACT CHELSEA [facility] Comment: For additional information, please refer to http://The [employer] website.Cluepedia.Exitround/faq/AGR181 (This link is being provided for informational/ educational purposes only.) Hep B core IgM NON-REACTI VE NON-REACT [facility]HELSEA [facility] Comment: For additional information, please refer to http://The [employer] website.[employer]/faq/WWE914 (This link is being provided for informational/ educational purposes only.) Hep C Ab NON-REACTI VE NON-REACT CHELSEA [facility] Comment: HCV antibody was non-reactive. There is no laboratory evidence of HCV infection. In most cases, no further action is required. However, if recent HCV exposure is suspected, a test for HCV RNA (test code 28157) is suggested. For additional information please refer to http://The [employer] website.[employer]/faq/CIS91r9 (This link is being provided for informational/ educational purposes only.) 09/16/2023 9:35 AM CDT 09/16/2023 9:36 AM CDT [facility] - 09/17/2023 8:19 AM CDT FASTING:YES FASTING: YES Annemarie FORREST LAB MICROBIOLOGY - GENERAL ORDERABLES Final Result [facility] [address] [place] [address] from Last 3 Months or Most Recently Relevant to Health Maintenance Insurance [facility] PPO [place] Care Teams Automatic Line Set Up Mechanic Relationship Specialty Start Date End Date Annemarie Hill PA [address] [facility] [address] [place] [address] PCP - General Internal Medicine 04/08/23
--- OUTSIDE RECORDS SUMMARY | 2024-05-05 11:40 | XMS_ITS | Clinical Summary ---
Author Organization [facility] Address [address] [place] [id number] Care Team Providers Care Estimator Jewelry Name Role Phone Annemarie Hill Primary Care Provider [phone] Allergies Active Allergy Reactions Criticality Noted Date Comments Bee Venom Unknown 04/06/2024 Codeine Unknown 04/06/2024 Medications No known medications Active Problems No known active problems Encounters Date Type Department Care Team Description 04/19/2024 7:30 AM HEATING AND BLENDING SUPERVISOR - 04/19/2024 8:15 AM HEATING AND BLENDING SUPERVISOR Surgery [facility] [address] David Little IV, MD COLONOSCOPY 04/19/2024 7:27 AM HEATING AND BLENDING SUPERVISOR Anesthesia Event [facility] [address] Shital Buitrago MD 04/19/2024 6:25 AM HEATING AND BLENDING SUPERVISOR - 04/19/2024 9:33 AM HEATING AND BLENDING SUPERVISOR Hospital Encounter [facility] [address] David Little IV, MD Discharge Disposition: Home or Self Care (Routine Discharge) 04/19/2024 Travel from Last 3 Months Family History Medical History Relation Comments Cancer Father Prostate Cancer Father cysts in pancrea Father Dementia Mother Diabetes Mother Relation Status Comments Father Alive Mother Alive Social History Tobacco Use Types Packs/Day Years Used Date Smoking Tobacco: Never Smokeless Tobacco: Never Tobacco Cessation:Counseling Given: Not Answered Alcohol Use Standard Drinks/Week Comments Not Currently 0 (1 standard drink = 0.6 oz pur e alcohol) Comments Unknown Sex and Gender Information Value Date Recorded Sex Assigned at Female 04/19/2024 6:25 AM HEATING AND BLENDING SUPERVISOR Legal Sex Female 9:48 AM HEATING AND BLENDING SUPERVISOR Gender Identity Not on file Sexual Orientation Not on file Last Filed Vital Signs Vital Sign Reading Time Taken Comments Blood Pressure 116/84 04/19/2024 8:50 AM HEATING AND BLENDING SUPERVISOR Pulse 98 04/19/2024 8:06 AM HEATING AND BLENDING SUPERVISOR Temperature 36.3 C (97.4 F) 04/19/2024 8:06 AM HEATING AND BLENDING SUPERVISOR Respiratory Rate 18 04/19/2024 8:19 AM HEATING AND BLENDING SUPERVISOR Oxygen Saturation 96% 04/19/2024 8:50 AM HEATING AND BLENDING SUPERVISOR Inhaled Oxygen Concentration - - Weight 68 kg (150 lb) 04/11/2024 3:44 PM HEATING AND BLENDING SUPERVISOR Height 162.6 cm (5' 4 ) 04/11/2024 3:44 PM HEATING AND BLENDING SUPERVISOR Body Mass Index 25.75 04/11/2024 3:44 PM HEATING AND BLENDING SUPERVISOR Plan of Treatment Health Maintenance Due Date Last Done Comments Cervical Cancer Screening Pa p Smear (Age 30 to 64) Every 3 Years 1972 Annual Physical 1975 Hepatitis C 1990 DTaP, Tdap and Td Vaccines ( 1 - Tdap) 1991 Hepatitis B Vaccines (1 of 3 - 19+ 3-dose series) 1991 Cervical Cancer Screening Pa p with HPV Testing (Age 30 to 64) Every 5 Years 2002 Cervical Cancer Screening wi th HPV 2002 Mammogram Screening 2012 Zoster Vaccines (1 of 2) 2022 COVID-19 Vaccine (2023-2 5 season) 2023 03/20/2021, 07/05/2020, 06/12/2020 Influenza Adult (#1) 2023 Colorectal Cancer Screening Colonoscopy (10 Years) 04/19/2034 04/19/2024 Meningococcal B Vaccine Aged Out No l onger eligible based on patient's age to complete this topic Meningococcal Vaccine Aged Out No luis dora eligible based on patient's age to complete this topic Pneumococcal Vaccine: Pediatrics (0 to 5 Years) and At-Risk Patients (6 to 64 Years) Aged Out No longer eligible b ased on patient's age to complete this topic RSV Immunizations Under 20 Months Aged Out No longer eligible b ased on patient's age to complete this topic Procedures Procedure Name Priority Date/Time Associated Diagnosis Comments COLONOSCOPY Routine 04/19/2024 8:00 AM HEATING AND BLENDING SUPERVISOR COLONOSCOPY 04/19/2024 7:25 AM HEATING AND BLENDING SUPERVISOR Screening from Last 3 Months Insurance [facility] Care Teams Estimator Jewelry Relationship Specialty Start Date End Date Annemarie Hill PA [address] [place] [address] [address] [place] [address] PCP - General PHYSICIAN HEEL PACKER 04/15/24
--- OUTSIDE RECORDS SUMMARY | 2024-05-05 11:40 | XMS_ITS | Clinical Summary ---
Author Organization [facility] [address] [facility] Address [address] [place] [address] Care Team Providers Care Medical Videographer Name Role Phone Annemarie Hill Primary Care Provider [phone]- [phone] Allergies Active Allergy Reactions Criticality Noted Date [...] by mouth daily 90 capsule 1 04/10/19 24 025 Discontinued(Re order) buPROPion SR (WELLBUTRIN SR) [...] 04/25/2024 Assessment & Plan (04/25/2024 10:03 AM PRINTED FORMS PROOFREADER): Discussed the patient's BMI. The BMI is [...] options and prefers colonoscopy. Order placed for [facility] group Arthralgia 11/22/2023 Assessment & Plan (11/22/2023 [...] caffeine Assessment & Plan (04/13/2023 12:03 AM PRINTED FORMS PROOFREADER): This is a significant, separately identifiable problem [...] b.i.d. Assessment & Plan (04/13/2023 12:03 AM PRINTED FORMS PROOFREADER): This is a significant, separately identifiable problem [...] 04/13/2023 Assessment & Plan (04/13/2023 12:02 AM PRINTED FORMS PROOFREADER): Continue oxybutynin. Refills to pharmacy Gastroesophageal reflux disease without esophagi tis 04/13/2023 Assessment & Plan (11/22/2023 9:51 PM CDT): Continue omeprazole 40 this plan persistent situational stress. Assessment & Plan (06/06/2023 2:47 PM CDT): Continue PPI p.r.n. Assessment & Plan (04/13/2023 12:05 AM PRINTED FORMS PROOFREADER): Discussed GERD at length including anatomy, behavioral [...] maintain. Assessment & Plan (04/13/2023 12:03 AM PRINTED FORMS PROOFREADER): Weight/BMI is in healthy range. Continue healthy lifestyle to maintain. Diabetes mellitus screening 04/13/2023 11/22/2023 Assessment & Plan (04/13/2023 12:03 AM PRINTED FORMS PROOFREADER): Check labs Lipid screening 04/13/2023 11/22/2023 Assessment & Plan (04/13/2023 12:03 AM PRINTED FORMS PROOFREADER): Check labs Fatigue 04/13/2023 11/22/2023 Assessment & Plan (08/12/2023 2:53 PM CDT): Probably multifactorial. Check labs and followup to re-evaluate Assessment & Plan (04/13/2023 12:03 AM PRINTED FORMS PROOFREADER): Probably multifactorial. Check labs and followup to re-evaluate Annual physical exam 04/13/2023 024 Assessment & Plan (04/13/2023 12:03 AM PRINTED FORMS PROOFREADER): Encouraged healthy lifestyle, good nutrition and exercise. Encouraged Calcium and Vitamin D and weight bearing exercise for bone health. Reviewed immunizations Reviewed age appropirate screenings. 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 file Not on file Not on file Obstetrics History Last Filed Vital Signs Vital Sign Reading Time Taken Comments Blood Pressure 112/84 04/25/2024 9:59 AM PRINTED FORMS PROOFREADER Pulse 79 04/25/2024 9:59 AM PRINTED FORMS PROOFREADER Temperature 36.5 C (97.7 F) 04/25/2024 9:59 AM PRINTED FORMS PROOFREADER Respiratory Rate - - Oxygen Saturation 98% 04/25/2024 9:59 AM PRINTED FORMS PROOFREADER Inhaled Oxygen Concentration - - Weight 69.9 kg (154 lb) 04/25/2024 9:59 AM PRINTED FORMS PROOFREADER Height 163.8 cm (5' 4.49 ) 04/25/2024 9:59 AM CS T Body Mass Index 26.04 04/25/2024 9:59 AM PRINTED FORMS PROOFREADER Plan of Treatment Health Maintenance Due Date Last Done Comments Cervical Cancer Screening 1972 DTaP/Tdap/Td Vaccine (1 - Tdap) 1983 Hepatitis B Screening 1990 Zoster Vaccine (1 of 2) 2022 Covid-19 Vaccine ( season) 2023 03/20/2021, 07/05/2020, 06/12/2020 Influenza Vaccine (#1) 2023 Regular Well Visit/Exam 18-64 04/10/2024 04/10/2023 Colon Cancer Screening-Colonoscopy 10/17/2024 04/19/2024 Depression Screening 04/25/2025 04/25/2024, 11/11/2023, 08/11/2023, Additional history exists Breast Cancer Screening-Mammogram 2025 2024, 2024 Hepatitis C Screening Completed 09/16/2023 Pneumococcal vaccine <65 Aged Out No longer eligible based on patient's age to complete this topic Procedures Procedure Name Priority Date/Time Associated Diagnosis Comments MAMMOGRAPHY Routine 2024 3:01 PM PRINTED FORMS PROOFREADER MAMMOGRAPHY Routine 2024 3:00 PM PRINTED FORMS PROOFREADER HM COLONOSCOPY Routine 04/19/2024 1:50 PM PRINTED FORMS PROOFREADER HEPATITIS PANEL, ACUTE Routine 09/16/2023 9:35 AM CDT from Last 3 Months or Most Recently Relevant to Health Maintenance Results * MAMMOGRAPHY (2024 3:01 PM PRINTED FORMS PROOFREADER) Mammography Normal Impressions La Guillen [place] - 2024 3:01 PM PRINTED FORMS PROOFREADER BIRADS 2-Benign Historical Provider HEALTH MAINTENANCE Edited Result - Final * MAMMOGRAPHY (2024 3:00 PM PRINTED FORMS PROOFREADER) Historical Provider HEALTH MAINTENANCE Final Result * (ABNORMAL) COLONOSCOPY (04/19/2024 1:50 PM PRINTED FORMS PROOFREADER) Scribed Colonoscopy Unknown Historical Provider HEALTH [facility] Edited Result - Final * Hepatitis panel, acute (09/16/2023 9:35 AM CDT) Hep A IgM NON-REACTI VE NON-REACT [facility] Comment: For additional information, please refer to http://[employer]/faq/SQN961 (This link is being provided for informational/ educational purposes only.) HepBsAg NON-REACTI VE NON-REACT [facility] Comment: For additional information, please refer to http://[employer]/faq/XIF139 (This link is being provided for informational/ educational purposes only.) Hep B core IgM NON-REACTI VE NON-REACT [facility] Comment: For additional information, please refer to http://[employer]/faq/PGK099 (This link is being provided for informational/ educational purposes only.) Hep C Ab NON-REACTI VE NON-REACT [facility] Comment: HCV antibody was non-reactive. There is no laboratory evidence of HCV infection. In most cases, no further action is required. However, if recent HCV exposure is suspected, a test for HCV RNA (test code 39913) is suggested. For additional information please refer to http://[employer]/faq/YIC17a8 (This link is being provided for informational/ educational purposes only.) 09/16/2023 9:35 AM CDT 09/16/2023 9:36 AM CDT Narrative [facility] - 09/17/2023 8:19 AM CDT FASTING:YES FASTING: YES Annemarie FORREST LAB MICROBIOLOGY - GENERAL ORDERABLES Final Result [facility] [address] [address] [facility] [place] [phone] from Last 3 Months or Most Recently Relevant to Health Maintenance Insurance [employer] PPO [place] Care Teams Medical Videographer Relationship Specialty Start Date End Date Annemarie Hill PA [address] [email or web address] [address] [place] [address] PCP - General Internal Medicine 04/08/23
[2024-05-05 15:37] LABS: INR 0.9; Prothrombin Time 12.7 Seconds (11.1-14.7)
[2024-05-05 15:38] LABS: Partial Thromboplastin Time 27.1 Seconds (22.3-36.8)
[2024-05-05 15:46] LABS: Add Urine Microscopic? YES; Appearance Urine Cloudy (Clear); Bacteria Urine Rare /hpf; Bilirubin Urine Negative (Negative); Blood Urine Negative (Negative); Color Urine Yellow (Yellow); Glucose Urine UA Negative (Negative); Ketones Urine Trace mg/dL (Negative); Leukocyte Esterase Ur 1+ LEU/UL (Negative); Need Manual Microscopic Reviewed; Nitrate Urine Negative (Negative); Non Pathogenic Casts 0-2; Protein Urine 1+ mg/dL (Negative); Specific Grav Ur 1.016 (1.001-1.035); Squamous Epithelial Cell Urine Occasional /hpf (Few); Urobilinogen Urine 0.2 mg/dL (<2.0); WBC Urine 21-50 /hpf (0-3); pH Urine 5.5 (5.0-9.0)
== END 2024-05-05 11:14 | disposition home or self-care (01) ==
PROVIDERS: PCP Physician Assistant; Visit Provider Urology
DX: Z01.818 Encounter for other preprocedural examination (principal); N20.0 Calculus of kidney
CPT/HCPCS: 36415; 81001; 85610; 85730; 87086

== ENCOUNTER 2024-05-06 05:52 | Day surgery (SDC) | payer BC, SELFPAY ==
[2024-05-04 15:05] VITALS: BMI 25.7
--- NOTE | 2024-05-04 15:22 | SUR.PREOP ---
Report to the Outpatient Waiting Room, entrance under the green pavilion located off [facility], at time 1030 on date 05/06/24. Planned Procedure Time: 1230.? Time changes happen often and if your time is changed the preop area will call you the afternoon before. - You and your visitor will be asked to self-screen and do not enter if you have any COVID symptoms. Please call surgeon if you need to reschedule. - A mask is optional within the hospital at this time. Patients may have clear liquids (water, carbonated beverages, clear teas, apple juice) until 3 hours prior to surgery with a maximum of 20 ounces. - No food from midnight until time of surgery and no smoking, or chewing tobacco (or any form of nicotine). No chewing gum, candy or mints. - Infants may have breast milk until 4 hours before surgery, formula 6 hours prior to surgery. - Children will be allowed to drink immediately following surgery.? If applicable, please bring a bottle or sippy cup to assist with drinking. Juice, water, soda, and popsicles are readily available.? For infants on formula, please bring formula the day of surgery.? Pacifiers are allowed. Take only the following medications with a SIP of water on the morning of surgery: n/a DO NOT STOP ANY OF YOUR OTHER PRESCRIPTION MEDICATIONS PRIOR TO SURGERY EXCEPT THE FOLLOWING Hold all vitamins and supplements for 3 days per anesthesiologist. Medications to discontinue per physician ___hold cranberry pill for 3 days, hold omeprazole day of surgery Date to take last dose Please no make-up, nail turkish, hairspray, perfume, deodorant, or body powder the day of surgery.? No jewelry (including any body piercings) or valuables the day of surgery, leave them at home.? Please take a shower or bath the night before, or the morning of, surgery with an antibacterial soap.? Wear comfortable, loose fitting clothing.? Children are encouraged to wear pajamas. - Jewelry must be removed prior to entering the operating room.? Rings and piercings that are not removed may be cut off. - The hospital will not accept responsibility for valuables.? - Please leave all valuables, including medications, at home the day of surgery. If you are going home after surgery, a licensed sweeper driver must drive you home.? - NO public transportation without another adult if you receive anesthesia. - We recommend that an adult stay with you for 24 hours following discharge. - We also recommend that you do not drive, make important decision, drink alcoholic beverages, or take any drugs that were not prescribed by your health care provider for at least 24 hours after your discharge time. For Pediatric surgeries, we recommend two adults accompany the child home. Follow any additional instructions given to you from your surgeon. Telephone instructions given to __patient__and asked if any additional questions and then verbalized understanding. Patient advised to call surgeon office or pre surgery nurse liaison [phone] if any additional questions.
[2024-05-06] VITALS (8 sets, daily range): BP systolic 100–131; BP diastolic 65–90; PULSE 72–100; RESP 12–18; TEMP 36.7–37.1; O2SAT 98–100
--- NOTE | ~2024-05-06 | XR_ITS ---
XR abdomen/kub 1V 05/06/2024 11:07 Indication: Preop ESWL Procedure: KUB Comparison: No prior studies for comparison. Findings: Bowel Gas pattern nonobstructive. There is a right renal stone measuring approximately 9 x 6 mm. No acute osseous abnormality. No free air. Lung bases unremarkable. Impression: 1: Right nephrolithiasis. Reviewed, dictated and finalized at location L. TYPE OPERATOR Impression: 1: Right nephrolithiasis.
--- OUTSIDE RECORDS SUMMARY | 2024-05-06 06:00 | XMS_ITS | Referral Summary ---
Author Organization [facility] [address] [facility] Address [facility] [place] [address] Care Team Providers Care Materials Analyst Name Role Phone Annemarie Hill Primary Care Provider [phone]- [phone] Encounters Date Type Department Care Team Description 2024 Orders Only [address] [place] [phone] Roby Hernandez MD 04/25/2024 10:00 AM MDS MANAGER Office Visit [address] [place] [phone] Annemarie Hill PA Annual physical exam (Primary Dx); BMI 26.0-26.9,adult; Daytime sleepiness 04/22/2024 Orders Only [address] [phone] ProviderRoby MD from Last 3 [...] 04/25/2024 Assessment & Plan (04/25/2024 10:03 AM MDS MANAGER): Discussed the patient's BMI. The BMI is [...] options and prefers colonoscopy. Order placed for [facility] group Arthralgia 11/22/2023 Assessment & Plan (11/22/2023 [...] caffeine Assessment & Plan (04/13/2023 12:03 AM MDS MANAGER): This is a significant, separately identifiable problem [...] b.i.d. Assessment & Plan (04/13/2023 12:03 AM MDS MANAGER): This is a significant, separately identifiable problem [...] 04/13/2023 Assessment & Plan (04/13/2023 12:02 AM MDS MANAGER): Continue oxybutynin. Refills to pharmacy Gastroesophageal reflux disease without esophagi tis 04/13/2023 Assessment & Plan (11/22/2023 9:51 PM CDT): Continue omeprazole 40 this plan persistent situational stress. Assessment & Plan (06/06/2023 2:47 PM CDT): Continue PPI p.r.n. Assessment & Plan (04/13/2023 12:05 AM MDS MANAGER): Discussed GERD at length including anatomy, behavioral [...] maintain. Assessment & Plan (04/13/2023 12:03 AM MDS MANAGER): Weight/BMI is in healthy range. Continue healthy lifestyle to maintain. Diabetes mellitus screening 04/13/2023 11/22/2023 Assessment & Plan (04/13/2023 12:03 AM MDS MANAGER): Check labs Lipid screening 04/13/2023 11/22/2023 Assessment & Plan (04/13/2023 12:03 AM MDS MANAGER): Check labs Fatigue 04/13/2023 11/22/2023 Assessment & Plan (08/12/2023 2:53 PM CDT): Probably multifactorial. Check labs and followup to re-evaluate Assessment & Plan (04/13/2023 12:03 AM MDS MANAGER): Probably multifactorial. Check labs and followup to re-evaluate Annual physical exam 04/13/2023 024 Assessment & Plan (04/13/2023 12:03 AM MDS MANAGER): Encouraged healthy lifestyle, good nutrition and exercise. 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 Not on file Not on file Not on file Last Filed Vital Signs Vital Sign Reading Time Taken Comments Blood Pressure 112/84 04/25/2024 9:59 AM MDS MANAGER Pulse 79 04/25/2024 9:59 AM MDS MANAGER Temperature 36.5 C (97.7 F) 04/25/2024 9:59 AM MDS MANAGER Respiratory Rate - - Oxygen Saturation 98% 04/25/2024 9:59 AM MDS MANAGER Inhaled Oxygen Concentration - - Weight 69.9 kg (154 lb) 04/25/2024 9:59 AM MDS MANAGER Height 163.8 cm (5' 4.49 ) 04/25/2024 9:59 AM CS T Body Mass Index 26.04 04/25/2024 9:59 AM MDS MANAGER Plan of Treatment Not on file Procedures Procedure Name Priority Date/Time Associated Diagnosis Comments MAMMOGRAPHY Routine 2024 3:01 PM MDS MANAGER MAMMOGRAPHY Routine 2024 3:00 PM MDS MANAGER COLONOSCOPY Routine 04/19/2024 1:50 PM MDS MANAGER HEPATITIS PANEL, ACUTE Routine 09/16/2023 9:35 AM CDT from Last 3 Months or Most Recently Relevant to Health Maintenance Results * MAMMOGRAPHY (2024 3:01 PM MDS MANAGER) Mammography Normal Impressions [place] Gu[place]en, [place] - 2024 3:01 PM MDS MANAGER BIRADS 2-Benign [facility] Provider HEALTH MAINTENANCE Edited Result - Final * MAMMOGRAPHY (2024 3:00 PM MDS MANAGER) [facility] Provider MD HEALTH MAINTENANCE Final Result * (ABNORMAL) COLONOSCOPY (04/19/2024 1:50 PM MDS MANAGER) Scribed Colonoscopy Unknown [facility] Provider HEALTH MAINTENANCE Edited Result - Final * Hepatitis panel, acute (09/16/2023 9:35 AM CDT) Hep A IgM NON-REACTI VE NON-REACT [facility] Comment: For additional information, please refer to http://education.[employer]/faq/LIB413 (This link is being provided for informational/ educational purposes only.) HepBsAg NON-REACTI VE NON-REACT [place] Comment: For additional information, please refer to http://[employer]/faq/BXB504 (This link is being provided for informational/ educational purposes only.) Hep B core IgM NON-REACTI VE NON-REACT [place] [facility] Comment: For additional information, please refer to http://[employer]/faq/TSK387 (This link is being provided for informational/ educational purposes only.) Hep C Ab NON-REACTI VE NON-REACT [place] Comment: HCV antibody was non-reactive. There is no laboratory evidence of HCV infection. In most cases, no further action is required. However, if recent HCV exposure is suspected, a test for HCV RNA (test code 94062) is suggested. For additional information please refer to http://[employer]/faq/YQR07x2 (This link is being provided for informational/ educational purposes only.) 09/16/2023 9:35 AM CDT 09/16/2023 9:36 AM CDT [facility] - 09/17/2023 8:19 AM CDT FASTING:YES FASTING: YES Annemarie FOR[facility] MICROBIOLOGY - GENERAL ORDERABLES Final Result [facility] [address] [place] [phone] from Last 3 Months or Most Recently Relevant to Health Maintenance Insurance [facility] PPO [place] Care Teams Materials Analyst Relationship Specialty Start Date End Date Annemarie Hill PA [address] [facility] [address] [place] [address] PCP - General Internal Medicine 04/08/23
--- OUTSIDE RECORDS SUMMARY | 2024-05-06 06:00 | XMS_ITS | Data Portability ---
Author Organization [facility], Main Office Address [address] [place] [address] Assessment No assessment recorded. Plan of Treatment Reminders Order Date Submit Date Provider Last Modified By Organization Details Last Modified Time Details Appointments None recorded. Lab TSH + free T4, serum 2022 023 [facility], [address], [address], [place], [address], 3 09:01:28 lipid panel, serum 2022 023 [facility], [address], [address], [place], [address], 3 09:01:30 urinalysis, dipstick 2022 023 [email or web address] [facility] [place] [facility], [address], [place], [address], 3 09:01:43 CBC w/ auto diff 2022 023 [facility], [address], [address], [place], [address], 3 09:01:33 CMP, serum or plasma 2022 023 [facility], [address], [address], [place], [address], 3 09:01:31 HbA1c (hemoglobin A1c), blood 2022 023 [place] [facility], [address], [place], [address], 09:01:32 Referral None recorded. Procedures None recorded. Surgeries None recorded. Imaging None recorded. Medication Orders nitrofurant oin monohydrate /macrocryst als 100 mg capsule 2022 023 [email or web address] [facility]/Ph[facility]acy #[id number], [address] [place], [address], 3 23:45:25 bupropion HCl SR 100 mg tablet,12 hr sustained-r elease 2022 023 [id number] [address] [place], [address], 3 13:11:26 Patient TargetsNo targets recorded. Patient InstructionsNo instructions recorded. Reason for Referral None Reported. Results Created Date Observation Date Name Description Value Unit Range Abnormal Flag Note LastModifiedBy Organization Detail LastModifiedTime 01/08/2001/09/2021 REFLE XIVE URINE CULTU RE reflexive urine culture NO CULTU RE INDIC ATED Not Available [address], [address], 01/09/2021 01:29:08 01/08/2001/09/2021 URINA LYSIS , COMPL ETE W/REF ERIC TO CULTU RE color yellow yellow normal Not Available [address], [address], 01/09/2021 01:29:08 01/08/2001/09/2021 URINA LYSIS , COMPL ETE W/REF ERIC TO CULTU RE appearance clear clear normal Not Available [address], [address], 01/09/2021 01:29:08 01/08/2001/09/2021 URINA LYSIS , COMPL ETE W/REF ERIC TO CULTU RE specific gravity 1.014 1.001- 1.035 normal Not Available [address], [address], 01/09/2021 01:29:08 01/08/2001/09/2021 URINA LYSIS , COMPL ETE W/REF ERIC TO CULTU RE pH 6.5 5.0-8. 0 normal Not Available [address], [address], 01/09/2021 01:29:08 01/08/2001/09/2021 URINA LYSIS , COMPL ETE W/REF ERIC TO CULTU RE glucose negati ve negati ve normal Not Available [address], [address], 01/09/2021 01:29:08 01/08/2001/09/2021 URINA LYSIS , COMPL ETE W/REF ERIC TO CULTU RE bilirubin negati ve negati ve normal Not Available [address], [address], 01/09/2021 01:29:08 01/08/2001/09/2021 URINA LYSIS , COMPL ETE W/REF ERIC TO CULTU RE ketones negati ve negati ve normal Not Available [address], [address], 01/09/2021 01:29:08 01/08/2001/09/2021 URINA LYSIS , COMPL ETE W/REF ERIC TO CULTU RE occult blood negati ve negati ve normal Not Available [address], [address], 01/09/2021 01:29:08 01/08/2001/09/2021 URINA LYSIS , COMPL ETE W/REF ERIC TO CULTU RE protein negati ve negati ve normal Not Available [address], [address], 01/09/2021 01:29:08 01/08/2001/09/2021 URINA LYSIS , COMPL ETE W/REF ERIC TO CULTU RE nitrite negati ve negati ve normal Not Available [address], [address], 01/09/2021 01:29:08 01/08/2001/09/2021 URINA LYSIS , COMPL ETE W/REF ERIC TO CULTU RE leukocyte esterase negati ve negati ve normal Not Available [address], [address], 01/09/2021 01:29:08 01/08/2001/09/2021 URINA LYSIS , COMPL ETE W/REF ERIC TO CULTU RE WBC 0-5 /hpf < or = 5 normal Not Available [address], [address], 01/09/2021 01:29:08 01/08/2001/09/2021 URINA LYSIS , COMPL ETE W/REF ERIC TO CULTU RE RBC 0-2 /hpf < or = 2 normal Not Available [address], [address], 01/09/2021 01:29:08 01/08/2001/09/2021 URINA LYSIS , COMPL ETE W/REF ERIC TO CULTU RE squamous epithelial cells 0-5 /hpf < or = 5 Not Available [address], [address], 01/09/2021 01:29:08 01/08/2001/09/2021 URINA LYSIS , COMPL ETE W/REF ERIC TO CULTU RE bacteria none seen /hpf none seen normal Not Available [address], [address], 01/09/2021 01:29:08 01/08/2001/09/2021 URINA LYSIS , COMPL ETE W/REF ERIC TO CULTU RE hyaline cast none seen /lpf none seen normal Not Available [address], [address], 01/09/2021 01:29:08 01/08/20 21 01/09/2021 CBC (INCL UDES DIFF/ PLT) white blood cell count 4.1 thous and/u L 3.8-10 .8 normal Not Available [address], [address], 01/09/2021 01:29:07 01/08/2001/09/2021 CBC (INCL UDES DIFF/ PLT) red blood cell count 3.80 marley on/uL 3.80-5 .10 normal Not Available [address], [address], 01/09/2021 01:29:07 01/08/20 21 01/09/2021 CBC (INCL UDES DIFF/ PLT) hemoglobin 12.4 g/dL 11.7-1 5.5 normal Not Available [address], [address], 01/09/2021 01:29:07 01/08/20 21 01/09/2021 CBC (INCL UDES DIFF/ PLT) hematocrit 36.1 % 35.0-4 5.0 normal Not Available [address], [address], 01/09/2021 01:29:07 01/08/2001/09/2021 CBC (INCL UDES DIFF/ PLT) MCV 95.0 fL 80.0-1 00.0 normal Not Available [address], [address], 01/09/2021 01:29:07 01/08/20 21 01/09/2021 CBC (INCL UDES DIFF/ PLT) MCH 32.6 pg 27.0-3 3.0 normal Not Available [address], [address], 01/09/2021 01:29:07 01/08/2001/09/2021 CBC (INCL UDES DIFF/ PLT) MCHC 34.3 g/dL 32.0-3 6.0 normal Not Available [address], [address], 01/09/2021 01:29:07 01/08/2001/09/2021 CBC (INCL UDES DIFF/ PLT) RDW 12.5 % 11.0-1 5.0 normal Not Available [address], [address], 01/09/2021 01:29:07 01/08/2001/09/2021 CBC (INCL UDES DIFF/ PLT) platelet count 223 thous and/u L 140-40 0 normal Not Available [address], [address], 01/09/2021 01:29:07 01/08/2001/09/2021 CBC (INCL UDES DIFF/ PLT) MPV 10.3 fL 7.5-12 .5 normal Not Available [address], [address], 01/09/2021 01:29:07 01/08/2001/09/2021 CBC (INCL UDES DIFF/ PLT) absolute neutrophils 2612 cells /uL 1500-7 800 normal Not Available [address], [address], 01/09/2021 01:29:07 01/08/2001/09/2021 CBC (INCL UDES DIFF/ PLT) absolute lymphocytes 996 cells /uL 850-39 00 normal Not Available [address], [address], 01/09/2021 01:29:07 01/08/20 21 01/09/2021 CBC (INCL UDES DIFF/ PLT) absolute monocytes 320 cells /uL 200-95 0 normal Not Available [address], [address], 01/09/2021 01:29:07 01/08/20 21 01/09/2021 CBC (INCL UDES DIFF/ PLT) absolute eosinophils 131 cells /uL 15-500 normal Not Available [address], [address], 01/09/2021 01:29:07 01/08/2001/09/2021 CBC (INCL UDES DIFF/ PLT) absolute basophils 41 cells /uL 0-200 normal Not Available [address], [address], 01/09/2021 01:29:07 01/08/2001/09/2021 CBC (INCL UDES DIFF/ PLT) neutrophils 63.7 % normal Not Available [address], [address], 01/09/2021 01:29:07 01/08/20 21 01/09/2021 CBC (INCL UDES DIFF/ PLT) lymphocytes 24.3 % normal Not Available [address], [address], 01/09/2021 01:29:07 01/08/2001/09/2021 CBC (INCL UDES DIFF/ PLT) monocytes 7.8 % normal Not Available [address], [address], 01/09/2021 01:29:07 01/08/20 21 01/09/2021 CBC (INCL UDES DIFF/ PLT) eosinophils 3.2 % normal Not Available [address], [address], 01/09/2021 01:29:07 01/08/20 21 01/09/2021 CBC (INCL UDES DIFF/ PLT) basophils 1.0 % normal Not Available [address], [address], 01/09/2021 01:29:07 01/08/20 21 01/09/2021 HEMOG LOBIN A1C hemoglobin A1C 4.6 %_of_ total _HGB <5.7 normal Not Available [address], [address], 01/09/2021 01:29:06 01/08/20 21 01/09/2021 COMPR EHENS CHELSEA METAB OLIC PANEL glucose 91 mg/dL 65-99 normal Fasti ng refer ence inter yves Not Available [address], [address], 01/09/2021 01:29:06 01/08/20 21 01/09/2021 COMPR EHENS CHELSEA METAB OLIC PANEL urea nitrogen (BUN) 15 mg/dL 7-25 normal Not Available [address], [address], 01/09/2021 01:29:06 01/08/20 21 01/09/2021 COMPR EHENS CHELSEA METAB OLIC PANEL creatinine 0.74 mg/dL 0.50-1 .10 normal Not Available [address], [address], 01/09/2021 01:29:06 01/08/20 21 01/09/2021 COMPR EHENS CHELSEA METAB OLIC PANEL eGFR non-afr. haitian 96 mL/mi n/1.7 3m2 > or = 60 normal Not Available [address], [address], 01/09/2021 01:29:06 01/08/20 21 01/09/2021 COMPR EHENS CHELSEA METAB OLIC PANEL eGFR 111 mL/mi n/1.7 3m2 > or = 60 normal Not Available [address], [address], 01/09/2021 01:29:06 01/08/20 21 01/09/2021 COMPR EHENS CHELSEA METAB OLIC PANEL BUN/creatini ne ratio not applic able (calc ) 6-22 Not Available [address], [address], 01/09/2021 01:29:06 01/08/20 21 01/09/2021 COMPR EHENS CHELSEA METAB OLIC PANEL sodium 139 mmol/ L 135-14 6 normal Not Available [address], [address], 01/09/2021 01:29:06 01/08/20 21 01/09/2021 COMPR EHENS CHELSEA METAB OLIC PANEL potassium 3.8 mmol/ L 3.5-5. 3 normal Not Available [address], [address], 01/09/2021 01:29:06 01/08/20 21 01/09/2021 COMPR EHENS CHELSEA METAB OLIC PANEL chloride 106 mmol/ L 98-110 normal Not Available [address], [address], 01/09/2021 01:29:06 01/08/20 21 01/09/2021 COMPR EHENS CHELSEA METAB OLIC PANEL carbon dioxide 26 mmol/ L 20-32 normal Not Available [address], [address], 01/09/2021 01:29:06 01/08/20 21 01/09/2021 COMPR EHENS CHELSEA METAB OLIC PANEL calcium 8.7 mg/dL 8.6-10 .2 normal Not Available [address], [address], 01/09/2021 01:29:06 01/08/20 21 01/09/2021 COMPR EHENS CHELSEA METAB OLIC PANEL protein, total 6.3 g/dL 6.1-8. 1 normal Not Available [address], [address], 01/09/2021 01:29:06 01/08/20 21 01/09/2021 COMPR EHENS CHELSEA METAB OLIC PANEL albumin 4.2 g/dL 3.6-5. 1 normal Not Available [address], [address], 01/09/2021 01:29:06 01/08/2001/09/2021 COMPR EHENS CHELSEA METAB OLIC PANEL globulin 2.1 g/dL_ (calc ) 1.9-3. 7 normal Not Available [address], [address], 01/09/2021 01:29:06 01/08/20 21 01/09/2021 COMPR EHENS CHELSEA METAB OLIC PANEL albumin/glob ulin ratio 2.0 (calc ) 1.0-2. 5 normal Not Available [address], [address], 01/09/2021 01:29:06 01/08/2001/09/2021 COMPR EHENS CHELSEA METAB OLIC PANEL bilirubin, total 0.9 mg/dL 0.2-1. 2 normal Not Available [address], [address], 01/09/2021 01:29:06 01/08/20 21 01/09/2021 COMPR EHENS CHELSEA METAB OLIC PANEL alkaline phosphatase 62 U/L 31-125 normal Not Available [address] [address] [place], [address], 01/09/2021 01:29:06 01/08/20 21 01/09/2021 COMPR EHENS CHELSEA METAB OLIC PANEL AST 13 U/L 10-35 normal Not Available [address], [address], 01/09/2021 01:29:06 01/08/20 21 01/09/2021 COMPR EHENS CHELSEA METAB OLIC PANEL ALT 9 U/L 6-29 normal Not Available [address], [address], 01/09/2021 01:29:06 01/08/20 21 01/09/2021 LIPID PANEL WITH RATIO S cholesterol, total 152 mg/dL <200 normal Not Available [address], [address], 01/09/2021 01:29:05 01/08/20 21 01/09/2021 LIPID PANEL WITH RATIO S HDL cholesterol 50 mg/dL > or = 50 normal Not Available [address], [address], 01/09/2021 01:29:05 01/08/20 21 01/09/2021 LIPID PANEL WITH RATIO S triglyceride s 80 mg/dL <150 normal Not Available [address], [address], 01/09/2021 01:29:05 01/08/20 21 01/09/2021 LIPID PANEL [...] elizabeth tics. com/f aq/FA Q164) Not Available [address], [address], 01/09/2021 01:29:05 01/08/20 21 01/09/2021 LIPID PANEL WITH RATIO S chol/HDLC ratio 3.0 (calc ) <5.0 normal Not Available [address], [address], 01/09/2021 01:29:05 01/08/2001/09/2021 LIPID PANEL WITH RATIO S LDL/HDL ratio 1.7 (calc ) Below avera ge Risk: <2.34 [place] Risk: 2.35- 4.12 Moder ate Risk: 4.13- 5.56 High Risk: >5.57 Not Available [address], [address], 01/09/2021 01:29:05 01/08/2001/09/2021 LIPID PANEL WITH RATIO S non HDL cholesterol 102 mg/dL _(flores c) <130 normal For patie nts with diabe dustin plus 1 major ASCVD risk facto r, treat ing to a non-H DL-C goal of <100 mg/dL (LDL- C of <70 mg/dL ) is consi solange a mari peshalini c optio n. Not Available [address], [address], 01/09/2021 01:29:05 01/08/2001/09/2021 TSH+F REE T4 TSH 1.99 mIU/L normal Refer ence Range > or = 20 Years 0.40- 4.50 Pregn kishan Range s First trime ster 0.26- 2.66 Secon d trime ster 0.55- 2.73 Third trime ster 0.43- 2.91 Not Available [employer] [address] [address] [place], [address], 01/09/2021 01:28:56 01/08/20 21 01/09/2021 TSH+F REE T4 T4, free 1.1 NG/dL 0.8-1. 8 normal Not Available [address], [address], 01/09/2021 01:28:56 01/31/20 22 01/31/2022 URINA LYSIS REFLE X color yellow yellow normal Not Available [address], [address], 01/31/2022 15:53:44 01/31/20 22 01/31/2022 URINA LYSIS REFLE X appearance cloudy clear abnormal Not Available [address], [address], 01/31/2022 15:53:44 01/31/20 22 01/31/2022 URINA LYSIS REFLE X specific gravity 1.016 1.001- 1.035 normal Not Available [address], [address], 01/31/2022 15:53:44 01/31/20 22 01/31/2022 URINA LYSIS REFLE X pH 5.5 5.0-8. 0 normal Not Available [address], [address], 01/31/2022 15:53:44 01/31/20 22 01/31/2022 URINA LYSIS REFLE X glucose negati ve negati ve normal Not Available [address], [address], 01/31/2022 15:53:44 01/31/20 22 01/31/2022 URINA LYSIS REFLE X bilirubin negati ve negati ve normal Not Available [address], [address], 01/31/2022 15:53:44 01/31/20 22 01/31/2022 URINA LYSIS REFLE X ketones negati ve negati ve normal Not Available [address], [address], 01/31/2022 15:53:44 01/31/20 22 01/31/2022 URINA LYSIS REFLE X occult blood negati ve negati ve normal Not Available [address], [address], 01/31/2022 15:53:44 01/31/20 22 01/31/2022 URINA LYSIS REFLE X protein negati ve negati ve normal Not Available [address], [address], 01/31/2022 15:53:44 01/31/20 22 01/31/2022 URINA LYSIS REFLE X nitrite negati ve negati ve normal Not Available [address], [address], 01/31/2022 15:53:44 01/31/20 22 01/31/2022 URINA LYSIS REFLE X leukocyte esterase 1+ negati ve abnormal Not Available [address], [address], 01/31/2022 15:53:44 01/31/20 22 01/31/2022 URINA LYSIS REFLE X WBC 10-20 /hpf < or = 5 abnormal Not Available [address], [address], 01/31/2022 15:53:44 01/31/20 22 01/31/2022 URINA LYSIS REFLE X RBC none seen /hpf < or = 2 normal Not Available [address], [address], 01/31/2022 15:53:44 01/31/20 22 01/31/2022 URINA LYSIS REFLE X squamous epithelial cells 10-20 /hpf < or = 5 abnormal Not Available [address], [address], 01/31/2022 15:53:44 01/31/20 22 01/31/2022 URINA LYSIS REFLE X bacteria many /hpf none seen abnormal Not Available [address], [address], 01/31/2022 15:53:44 01/31/20 22 01/31/2022 URINA LYSIS REFLE X hyaline cast none seen /lpf none seen normal Not Available [address], [address], 01/31/2022 15:53:44 01/31/20 22 01/31/2022 CBC (INCL UDES DIFF/ PLT) white blood cell count 4.9 thous and/u L 3.8-10 .8 normal Not Available [address], [address], 01/31/2022 15:53:43 01/31/20 22 01/31/2022 CBC (INCL UDES DIFF/ PLT) red blood cell count 4.40 marley on/uL 3.80-5 .10 normal Not Available [address], [address], 01/31/2022 15:53:43 01/31/20 22 01/31/2022 CBC (INCL UDES DIFF/ PLT) hemoglobin 13.7 g/dL 11.7-1 5.5 normal Not Available [address], [address], 01/31/2022 15:53:43 01/31/20 22 01/31/2022 CBC (INCL UDES DIFF/ PLT) hematocrit 40.4 % 35.0-4 5.0 normal Not Available [address], [address], 01/31/2022 15:53:43 01/31/20 22 01/31/2022 CBC (INCL UDES DIFF/ PLT) MCV 91.8 fL 80.0-1 00.0 normal Not Available [address], [address], 01/31/2022 15:53:43 01/31/20 22 01/31/2022 CBC (INCL UDES DIFF/ PLT) MCH 31.1 pg 27.0-3 3.0 normal Not Available [address], [address], 01/31/2022 15:53:43 01/31/20 22 01/31/2022 CBC (INCL UDES DIFF/ PLT) MCHC 33.9 g/dL 32.0-3 6.0 normal Not Available [address], [address], 01/31/2022 15:53:43 01/31/20 22 01/31/2022 CBC (INCL UDES DIFF/ PLT) RDW 13.0 % 11.0-1 5.0 normal Not Available [address], [address], 01/31/2022 15:53:43 01/31/20 22 01/31/2022 CBC (INCL UDES DIFF/ PLT) platelet count 263 thous and/u L 140-40 0 normal Not Available [address], [address], 01/31/2022 15:53:43 01/31/20 22 01/31/2022 CBC (INCL UDES DIFF/ PLT) MPV 10.6 fL 7.5-12 .5 normal Not Available [address], [address], 01/31/2022 15:53:43 01/31/20 22 01/31/2022 CBC (INCL UDES DIFF/ PLT) absolute neutrophils 2920 cells /uL 1500-7 800 normal Not Available [address], [address], 01/31/2022 15:53:43 01/31/20 22 01/31/2022 CBC (INCL UDES DIFF/ PLT) absolute lymphocytes 1186 cells /uL 850-39 00 normal Not Available [address], [address], 01/31/2022 15:53:43 01/31/20 22 01/31/2022 CBC (INCL UDES DIFF/ PLT) absolute monocytes 377 cells /uL 200-95 0 normal Not Available [address], [address], 01/31/2022 15:53:43 01/31/20 22 01/31/2022 CBC (INCL UDES DIFF/ PLT) absolute eosinophils 368 cells /uL 15-500 normal Not Available [address], [address], 01/31/2022 15:53:43 01/31/20 22 01/31/2022 CBC (INCL UDES DIFF/ PLT) absolute basophils 49 cells /uL 0-200 normal Not Available [address], [address], 01/31/2022 15:53:43 01/31/20 22 01/31/2022 CBC (INCL UDES DIFF/ PLT) neutrophils 59.6 % normal Not Available [address], [address], 01/31/2022 15:53:43 01/31/20 22 01/31/2022 CBC (INCL UDES DIFF/ PLT) lymphocytes 24.2 % normal Not Available [address] [place], [address], 01/31/2022 15:53:43 01/31/20 22 01/31/2022 CBC (INCL UDES DIFF/ PLT) monocytes 7.7 % normal Not Available [facility] [address] [address] [place], [address], 01/31/2022 15:53:43 01/31/20 22 01/31/2022 CBC (INCL UDES DIFF/ PLT) eosinophils 7.5 % normal Not Available [facility] [address] [address] [place], [address], 01/31/2022 15:53:43 01/31/20 22 01/31/2022 CBC (INCL UDES DIFF/ PLT) basophils 1.0 % normal Not Available [facility] [address] [address] [place], [address], 01/31/2022 15:53:43 01/31/20 22 01/31/2022 HEMOG LOBIN [...] with a decre ased risk of diabe dsutin. Curre ntly, no conse nsus exist justin [...] Diabe dustin(A DA). Not Available [facility] [address] [place], [address], 01/31/2022 15:53:43 01/31/20 22 01/31/2022 COMPR EHENS CHELSEA METAB OLIC PANEL glucose 97 mg/dL 65-99 normal Fasti ng refer ence inter yves Not Available [address], [address], 01/31/2022 15:53:42 01/31/20 22 01/31/2022 COMPR EHENS CHELSEA METAB OLIC PANEL urea nitrogen (BUN) 18 mg/dL 7-25 normal Not Available [address], [address], 01/31/2022 15:53:42 01/31/20 22 01/31/2022 COMPR EHENS CHELSEA METAB OLIC PANEL creatinine 0.76 mg/dL 0.50-0 .99 normal Not Available [address], [address], 01/31/2022 15:53:42 01/31/20 22 01/31/2022 COMPR EHENS [...] kdoqi /gfr% 5Fcal culat or Not Available [address], [address], 01/31/2022 15:53:42 01/31/20 22 01/31/2022 COMPR EHENS CHELSEA METAB OLIC PANEL BUN/creatini ne ratio not applic able (calc ) 6-22 Not Available [address], [address], 01/31/2022 15:53:42 01/31/20 22 01/31/2022 COMPR EHENS CHELSEA METAB OLIC PANEL sodium 139 mmol/ L 135-14 6 normal Not Available [address], [address], 01/31/2022 15:53:42 01/31/20 22 01/31/2022 COMPR EHENS CHELSEA METAB OLIC PANEL potassium 4.2 mmol/ L 3.5-5. 3 normal Not Available [address], [address], 01/31/2022 15:53:42 01/31/20 22 01/31/2022 COMPR EHENS CHELSEA METAB OLIC PANEL chloride 104 mmol/ L 98-110 normal Not Available [address], [address], 01/31/2022 15:53:42 01/31/20 22 01/31/2022 COMPR EHENS CHELSEA METAB OLIC PANEL carbon dioxide 25 mmol/ L 20-32 normal Not Available [address], [address], 01/31/2022 15:53:42 01/31/20 22 01/31/2022 COMPR EHENS CHELSEA METAB OLIC PANEL calcium 9.1 mg/dL 8.6-10 .2 normal Not Available [address], [address], 01/31/2022 15:53:42 01/31/20 22 01/31/2022 COMPR EHENS CHELSEA METAB OLIC PANEL protein, total 7.0 g/dL 6.1-8. 1 normal Not Available [address], [address], 01/31/2022 15:53:42 01/31/20 22 01/31/2022 COMPR EHENS CHELSEA METAB OLIC PANEL albumin 4.5 g/dL 3.6-5. 1 normal Not Available [address], [address], 01/31/2022 15:53:42 01/31/20 22 01/31/2022 COMPR EHENS CHELSEA METAB OLIC PANEL globulin 2.5 g/dL_ (calc ) 1.9-3. 7 normal Not Available [address], [address], 01/31/2022 15:53:42 01/31/20 22 01/31/2022 COMPR EHENS CHELSEA METAB OLIC PANEL albumin/glob ulin ratio 1.8 (calc ) 1.0-2. 5 normal Not Available [address], [address], 01/31/2022 15:53:42 01/31/20 22 01/31/2022 COMPR EHENS CHELSEA METAB OLIC PANEL bilirubin, total 1.4 mg/dL 0.2-1. 2 high Not Available [address], [address], 01/31/2022 15:53:42 01/31/20 22 01/31/2022 COMPR EHENS CHELSEA METAB OLIC PANEL alkaline phosphatase 80 U/L 31-125 normal Not Available [address], [address], 01/31/2022 15:53:42 01/31/20 22 01/31/2022 COMPR EHENS CHELSEA METAB OLIC PANEL AST 15 U/L 10-35 normal Not Available [address], [address], 01/31/2022 15:53:42 01/31/20 22 01/31/2022 COMPR EHENS CHELSEA METAB OLIC PANEL ALT 13 U/L 6-29 normal Not Available [address], [address], 01/31/2022 15:53:42 01/31/20 22 01/31/2022 LIPID PANEL WITH RATIO S cholesterol, total 201 mg/dL <200 high Not Available [address], [address], 01/31/2022 15:53:42 01/31/20 22 01/31/2022 LIPID PANEL WITH RATIO S HDL cholesterol 51 mg/dL > or = 50 normal Not Available [facility] [id number] [place] [address], [address], 01/31/2022 15:53:42 01/31/20 22 01/31/2022 LIPID PANEL WITH RATIO S triglyceride s 121 mg/dL <150 normal Not Available [address] [address] [place], [address], 01/31/2022 15:53:42 01/31/20 22 01/31/2022 LIPID PANEL [...] on.[employer] etiennes. com/f aq/FA Q164) Not Available [address] [address] [place], [address], 01/31/2022 15:53:42 01/31/20 22 01/31/2022 LIPID PANEL WITH RATIO S chol/HDLC ratio 3.9 (calc ) <5.0 normal Not Available [facility] [address] [place], [address], 01/31/2022 15:53:42 01/31/20 22 01/31/2022 LIPID PANEL WITH RATIO S LDL/HDL ratio 2.5 (calc ) Below avera ge Risk: <2.34 [place] ge Risk: 2.35- 4.12 Moder ate Risk: 4.13- 5.56 High Risk: >5.57 Not Available [address] [address] [place], [address], 01/31/2022 15:53:42 01/31/20 22 01/31/2022 LIPID PANEL WITH RATIO S non HDL cholesterol 150 mg/dL _(flores c) <130 high For patie nts with diabe dustin plus 1 major ASCVD risk facto r, treat ing to a non-H DL-C goal of <100 mg/dL (LDL- C of <70 mg/dL ) is wangi solange a mari peuti c optio n. Not Available [address] [address] [place], [address], 01/31/2022 15:53:42 01/31/2001/31/2022 TSH+F REE T4 TSH 1.66 mIU/L normal Refer ence Range > or = 20 Years 0.40- 4.50 Pregn kishan Range s First trime ster 0.26- 2.66 Secon d trime ster 0.55- 2.73 Third trime ster 0.43- 2.91 Not Available [address] [address] [place], [address], 01/31/2022 15:53:41 01/31/2001/31/2022 TSH+F REE T4 T4, free 1.2 NG/dL 0.8-1. 8 normal Not Available [facility] [address] [address] [place], [address], 01/31/2022 15:53:41 11/12/19 23 11/11/2022 urina lysis , dipst ick Leukocytes (reference range: negative carroll/ l) Trace Not Available [facility] [place] [address], [place], [address], 11/11/2022 09:01:08 11/12/19 23 11/11/2022 urina lysis , dipst ick Nitrite (reference rage: negative mg/dl) negati ve Not Available [facility] [place] [address], [place], [address], 11/11/2022 09:01:08 11/12/19 23 11/11/2022 urina lysis , dipst ick Urobilinogen (reference range: 0.2-1 mg/dl) 0.2 Not Available [facility] [place] [address], [place], [address], 11/11/2022 09:01:08 11/12/19 23 11/11/2022 urina lysis , dipst ick Protein (reference range: negative mg/dl) Small Not Available [facility] [place] [address], [place], [address], 11/11/2022 09:01:08 11/12/19 23 11/11/2022 urina lysis , dipst ick pH (reference range: 5-7) 5.5 Not Available [facility] [facility] [place] [address], [place], [address], 11/11/2022 09:01:08 11/12/19 23 11/11/2022 urina lysis , dipst ick Blood (reference range: negative Jasson/ l) Negati ve Not Available [facility] [place] [address], [place], [address], 11/11/2022 09:01:08 11/12/19 23 11/11/2022 urina lysis , dipst ick Specific [place] (reference range: 1.005-1.030) 1.025 Not Available [facility] [place] [address], [place], [address], 11/11/2022 09:01:08 11/12/19 23 11/11/2022 urina lysis , dipst ick Ketone (reference range: negative mg/dl) Negati ve Not Available [facility] [place] [address], [place], [address], 11/11/2022 09:01:08 11/12/19 23 11/11/2022 urina lysis , dipst ick Bilirubin (reference range: negative mg/dl) Negati ve Not Available [facility] [place] [address], [place], [address], 11/11/2022 09:01:08 11/12/19 23 11/11/2022 urina lysis , dipst ick Glucose (reference range: negative mg/dl) Negati ve Not Available [facility] [place] [address], [place], [address], 11/11/2022 09:01:08 11/12/19 23 11/11/2022 urina lysis , dipst ick Appearance Cloudy Not Available [facility] [place] [address], [place], [address], 11/11/2022 09:01:08 11/12/19 23 11/11/2022 urina lysis , dipst ick Color Yellow Not Available [facility] [place] [address], [place], [address], 11/11/2022 09:01:08 12/30/19 23 12/30/2022 TSH+F REE T4 TSH 1.48 mIU/L normal Refer ence Range > or = 20 Years 0.40- 4.50 Pregn kishan Range s First trime ster 0.26- 2.66 Secon d trime ster 0.55- 2.73 Third trime ster 0.43- 2.91 Not Available [address], [address], 12/30/2022 09:01:28 12/30/19 23 12/30/2022 TSH+F REE T4 T4, free 1.0 NG/dL 0.8-1. 8 normal Not Available [address], [address], 12/30/2022 09:01:28 12/30/19 23 12/30/2022 LIPID PANEL WITH RATIO S cholesterol, total 201 mg/dL <200 high Not Available [address], [address], 12/30/2022 09:01:30 12/30/1912/30/2022 LIPID PANEL WITH RATIO S HDL cholesterol 47 mg/dL > or = 50 low Not Available [address], [address], 12/30/2022 09:01:30 12/30/19 23 12/30/2022 LIPID PANEL WITH RATIO S triglyceride s 171 mg/dL <150 high Not Available [address], [address], 12/30/2022 09:01:30 12/30/1912/30/2022 LIPID PANEL WITH RATIO [...] 9): 2061- 2068 (http ://ed ucati on.S[employer] ram[employer]Stream. com/f aq/FA Q164) Not Available [address], [address], 12/30/2022 09:01:30 12/30/1912/30/2022 LIPID PANEL WITH RATIO S chol/HDLC ratio 4.3 (calc ) <5.0 normal Not Available [address], [address], 12/30/2022 09:01:30 12/30/1912/30/2022 LIPID PANEL WITH RATIO S LDL/HDL ratio 2.7 (calc ) Below avera ge Risk: <2.34 [place] ge Risk: 2.35- 4.12 Moder ate Risk: 4.13- 5.56 High Risk: >5.57 Not Available [address], [address], 12/30/2022 09:01:30 12/30/1912/30/2022 LIPID PANEL WITH RATIO S non HDL cholesterol 154 mg/dL _(flores c) <130 high For patie nts with diabe dustin plus 1 major ASCVD risk facto r, treat ing to a non-H DL-C goal of <100 mg/dL (LDL- C of <70 mg/dL ) is consi [place] c optio n. Not Available [address], [address], 12/30/2022 09:01:30 12/30/1912/30/2022 COMPR EHENS CHELSEA METAB OLIC PANEL glucose 86 mg/dL 65-99 normal Fasti ng refer ence inter yves Not Available [address], [address], 12/30/2022 09:01:31 12/30/1912/30/2022 COMPR EHENS CHELSEA METAB OLIC PANEL urea nitrogen (BUN) 14 mg/dL 7-25 normal Not Available [address], [address], 12/30/2022 09:01:31 12/30/19 23 12/30/2022 COMPR EHENS CHELSEA METAB OLIC PANEL creatinine 0.80 mg/dL 0.50-1 .03 normal Not Available [address], [address], 12/30/2022 09:01:31 12/30/19 23 12/30/2022 COMPR EHENS CHELSEA METAB OLIC PANEL eGFR 90 mL/mi n/1.7 3m2 > or = 60 normal Not Available [address], [address], 12/30/2022 09:01:31 12/30/1912/30/2022 COMPR EHENS CHELSEA METAB OLIC PANEL BUN/creatini ne ratio SEE NOTE: (calc ) 6-22 Not Repor pete: BUN and Creat inine are withi n refer ence range . Not Available [address], [address], 12/30/2022 09:01:31 12/30/19 23 12/30/2022 COMPR EHENS CHELSEA METAB OLIC PANEL sodium 141 mmol/ L 135-14 6 normal Not Available [address], [address], 12/30/2022 09:01:31 12/30/19 23 12/30/2022 COMPR EHENS CHELSEA METAB OLIC PANEL potassium 3.7 mmol/ L 3.5-5. 3 normal Not Available [address], [address], 12/30/2022 09:01:31 12/30/19 23 12/30/2022 COMPR EHENS CHELSEA METAB OLIC PANEL chloride 105 mmol/ L 98-110 normal Not Available [address] [facility], [place], [address], 12/30/2022 09:01:31 12/30/1912/30/2022 COMPR EHENS CHELSEA METAB OLIC PANEL carbon dioxide 30 mmol/ L 20-32 normal Not Available [place] [address] [facility] [place], [address], 12/30/2022 09:01:31 12/30/1912/30/2022 COMPR EHENS CHELSEA METAB OLIC PANEL calcium 8.8 mg/dL 8.6-10 .4 normal Not Available [address], [place], [address], 12/30/2022 09:01:31 12/30/1912/30/2022 COMPR EHENS CHELSEA METAB OLIC PANEL protein, total 6.5 g/dL 6.1-8. 1 normal Not Available [address], [place], [address], 12/30/2022 09:01:31 12/30/1912/30/2022 COMPR EHENS CHELSEA METAB OLIC PANEL albumin 4.3 g/dL 3.6-5. 1 normal Not Available [address], [address], 12/30/2022 09:01:31 12/30/1912/30/2022 COMPR EHENS CHELSEA METAB OLIC PANEL globulin 2.2 g/dL_ (calc ) 1.9-3. 7 normal Not Available [address] [address] [address] [place], [address], 12/30/2022 09:01:31 12/30/1912/30/2022 COMPR EHENS CHELSEA METAB OLIC PANEL albumin/glob ulin ratio 2.0 (calc ) 1.0-2. 5 normal Not Available [address] [place], [address], 12/30/2022 09:01:31 12/30/19 23 12/30/2022 COMPR EHENS CHELSEA METAB OLIC PANEL bilirubin, total 1.0 mg/dL 0.2-1. 2 normal Not Available [address] [address] [address] [place], [address], 12/30/2022 09:01:31 12/30/1912/30/2022 COMPR EHENS CHELSEA METAB OLIC PANEL alkaline phosphatase 89 U/L 37-153 normal Not Available [facility] [place] [address] [place], [address], 12/30/2022 09:01:31 12/30/1912/30/2022 COMPR EHENS CHELSEA METAB OLIC PANEL AST 18 U/L 10-35 normal Not Available [address] [address] [address] [place], [address], 12/30/2022 09:01:31 12/30/1912/30/2022 COMPR EHENS CHELSEA METAB OLIC PANEL ALT 23 U/L 6-29 normal Not Available [place] [address] [place], [address], 12/30/2022 09:01:31 12/30/1912/30/2022 HEMOG LOBIN A1C hemoglobin [...] of diabe dustin in child robert. Accor mustapha to Ameri can Diabe dustin Assoc iatio n (ADA) guide lines , hemog lobin A1c <7.0% repre sents optim al contr ol in non-p regna nt diabe tic patie nts. Diffe robertt rene cs may apply to speci fic patie nt popul ation s. Stand ards of Medic al Care in Diabe dustin(A DA). Not Available [place] [address] [address] [place], [address], 12/30/2022 09:01:32 12/30/1912/30/2022 CBC (INCL UDES DIFF/ PLT) white blood cell count 4.8 thous and/u L 3.8-10 .8 normal Not Available [facility] [place] [address] [place], [address], 12/30/2022 09:01:33 12/30/1912/30/2022 CBC (INCL UDES DIFF/ PLT) red blood cell count 4.16 marley on/uL 3.80-5 .10 normal Not Available [facility] [place] [address] [place], [address], 12/30/2022 09:01:33 12/30/19 23 12/30/2022 CBC (INCL UDES DIFF/ PLT) hemoglobin 13.4 g/dL 11.7-1 5.5 normal Not Available [address] [address] [place], [address], 12/30/2022 09:01:33 12/30/1912/30/2022 CBC (INCL UDES DIFF/ PLT) hematocrit 38.1 % 35.0-4 5.0 normal Not Available [facility] [place] [address] [place], [address], 12/30/2022 09:01:33 12/30/19 23 12/30/2022 CBC (INCL UDES DIFF/ PLT) MCV 91.6 fL 80.0-1 00.0 normal Not Available [facility] [address] [address] [place], [address], 12/30/2022 09:01:33 12/30/19 23 12/30/2022 CBC (INCL UDES DIFF/ PLT) MCH 32.2 pg 27.0-3 3.0 normal Not Available [address], [address], 12/30/2022 09:01:33 12/30/1912/30/2022 CBC (INCL UDES DIFF/ PLT) MCHC 35.2 g/dL 32.0-3 6.0 normal Not Available [address], [address], 12/30/2022 09:01:33 12/30/1912/30/2022 CBC (INCL UDES DIFF/ PLT) RDW 12.7 % 11.0-1 5.0 normal Not Available [address], [address], 12/30/2022 09:01:33 12/30/1912/30/2022 CBC (INCL UDES DIFF/ PLT) platelet count 241 thous and/u L 140-40 0 normal Not Available [address], [address], 12/30/2022 09:01:33 12/30/19 23 12/30/2022 CBC (INCL UDES DIFF/ PLT) MPV 10.3 fL 7.5-12 .5 normal Not Available [address], [address], 12/30/2022 09:01:33 12/30/1912/30/2022 CBC (INCL UDES DIFF/ PLT) absolute neutrophils 3182 cells /uL 1500-7 800 normal Not Available [address], [address], 12/30/2022 09:01:33 12/30/1912/30/2022 CBC (INCL UDES DIFF/ PLT) absolute lymphocytes 1075 cells /uL 850-39 00 normal Not Available [address], [address], 12/30/2022 09:01:33 12/30/1912/30/2022 CBC (INCL UDES DIFF/ PLT) absolute monocytes 336 cells /uL 200-95 0 normal Not Available [address], [address], 12/30/2022 09:01:33 12/30/1912/30/2022 CBC (INCL UDES DIFF/ PLT) absolute eosinophils 178 cells /uL 15-500 normal Not Available [address], [address], 12/30/2022 09:01:33 12/30/1912/30/2022 CBC (INCL UDES DIFF/ PLT) absolute basophils 29 cells /uL 0-200 normal Not Available [address], [address], 12/30/2022 09:01:33 12/30/1912/30/2022 CBC (INCL UDES DIFF/ PLT) neutrophils 66.3 % normal Not Available [address], [address], 12/30/2022 09:01:33 12/30/1912/30/2022 CBC (INCL UDES DIFF/ PLT) lymphocytes 22.4 % normal Not Available [address], [address], 12/30/2022 09:01:33 12/30/1912/30/2022 CBC (INCL UDES DIFF/ PLT) monocytes 7.0 % normal Not Available [address], [address], 12/30/2022 09:01:33 12/30/1912/30/2022 CBC (INCL UDES DIFF/ PLT) eosinophils 3.7 % normal Not Available [facility]. [address] [address] [address], [place], [address], 12/30/2022 09:01:33 12/30/1912/30/2022 CBC (INCL UDES DIFF/ PLT) basophils 0.6 % normal Not Available [facility] [address] [address], [place], [address], 12/30/2022 09:01:33 10/02/1909/26/2022 MAMMO , scree tima, digit al, bilat eral No observ ation record ed. [email or web address] [facility] [address] [place], [address], 11/10/2022 12:40:33 Result Notes None recorded. Problems Name Problem SNOMED Code Status Onset Date Resolution Date Notes Provider Name and Address Organization Details Recorded Time Apnea 5338999 Active 2022 Not Available [facility] 3 19:28:30 Right flank pain 190592615 Active 2021 Not Available [facility] 3 19:28:31 Thoracic back pain 806545520 Active 2021 Not Available [facility] 3 19:28:31 Sleep disorder 58187647 Active 2022 Not Available [facility] 3 19:28:31 Fatigue 44018576 Active 2022 Not Available [facility] 3 19:28:31 Contact dermatitis caused by urushiol from Eastern poison rosalva 873221118 Active 2022 LON Grider [address] [facility], [place], [address] , [employer] 3 09:49:57 Weight gain 0940226 Active 2022 LON Grider [address] [facility], [place], [address] , [employer] [facility] [employer] 3 13:07:05 Depressive disorder 99037390 Active [address] [facility], [facility] [address], [place], [address] , [employer] 3 13:11:02 Lower urinary tract symptoms 139392318 Active [address] [facility], [facility] [address], [place], [address] , [employer] 3 13:13:07 Acute upper respiratory infection 81811910 Active [address] [facility], [facility] [address], [place], [address] , [employer] 4 11:23:55 Problem Notes None recorded. 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 Medical Equipment None Reported. Allergies Allergen ID Allergen Name Allergen Category Reaction Reaction Severity Criticality Documentation Date Start Date Code Code System Note Provider Name and Address Organization Details Recorded Time 11169 codeine medicatio n vomiting Not available Not available 05/14/2022 2670 RxNorm Not Available [facility] 3 19:29:12 Medications Name Sig Start Date [...] % 99 % 104 /min 97.8 [degF] 34421.2 7 g 110 mm[Hg] 70 mm[Hg] Not Available [facility] 3 19:28:12 Date Recorded Body mass index (BMI) Body height Oxygen saturation Oxygen saturation in Arterial blood by Pulse oximetry Heart rate Respiratory rate Body temperature Body weight Systolic blood pressure Diastolic blood pressure Provider Name and Address Organization Details Last Updated DateTime 2 23.9 kg/m2 162.56 cm 98 % 98 % 72 /min 16 /min 97.6 [degF] 52930.3 4 g 120 mm[Hg] 80 mm[Hg] Not Available [facility] 3 19:28:13 Date Recorded Body mass index (BMI) Body height Oxygen saturation Oxygen saturation in Arterial blood by Pulse oximetry Heart rate Respiratory rate Body temperature Body weight Systolic blood pressure Diastolic blood pressure Provider Name and Address Organization Details Last Updated DateTime 3 24.8 kg/m2 162.56 cm 98 % 98 % 91 /min 16 /min 97.3 [degF] 73004.1 g 118 mm[Hg] 78 mm[Hg] Not Available [facility] 3 19:28:13 Date Recorded Body height Body temperature Body mass index (BMI) Body weight Respiratory rate Oxygen saturation Oxygen saturation in Arterial blood by Pulse oximetry Heart rate Systolic blood pressure Diastolic blood pressure Provider Name and Address Organization Details Last Updated DateTime 3 162.56 cm 98.1 [degF] 24.6 kg/m2 18517.5 1 g 16 /min 98 % 98 % 104 /min 118 mm[Hg] 78 mm[Hg] Joann Peoples, [facility] 12:27:59 Social History Question Answer Notes LastModified by Organizat ion Details LastModified Time Tobacco Smoking Status Never Smoker Not Available [facility] 05/14/2022 19:27:45 Do You Have An Advance Directive? No [id number] Information not available 05/14/2022 What Is Your Level Of Alcohol Consumption? Occasional MIGRATION.047476 5444 Information not available 05/14/2022 If You Are , What Was Your Level Of Alcohol Consumption Prior To ? None MIGRATION.[id number] 1986 Information not available 05/14/2022 Do You Wear A Helmet When Biking? Yes MIGRATION.509521 8265 Information not available 05/14/2022 What Is Your Level Of Caffeine Consumption? Moderate MIGRATION.682279 7982 Information not available 05/14/2022 In The 14 Days Before Symptom Onset, Have You Had Close Contact With A Laboratory-confir med COVID-19 While That Case Was Ill? No MIGRATION.485991 9369 Information not available 05/14/2022 In The 14 Days Before Symptom Onset, Have You Had Close Contact With A Person Who Is Under Investigation For COVID-19 While That Person Was Ill? No MIGRATION.040372 4353 Information not available 05/14/2022 Are You Currently Employed? Yes Information not available 11/07/2022 What Type Of Diet Are You Following? REGULAR MIGRATION.312623 4371 Information not available 05/14/2022 What Is The Highest Grade Or Level Of School You Have Completed Or The Highest Degree You Have Received? 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 No MIGRATION.606998 4875 Information not available 05/14/2022 Are There Any Guns Present In Your Home? No MIGRATION.083948 6147 Information not available 05/14/2022 Do You Use Insect Repellent Routinely? No MIGRATION.404868 1726 Information not available 05/14/2022 Do You Have A Medical Power Of Brass Finisher? No MIGRATION.783125 3106 Information not available 05/14/2022 What Is Your Relationship Status? Single MIGRATION.679397 0251 Information not available 05/14/2022 Do You Use Your Seat Belt Or Car Seat Routinely? Yes MIGRATION.746289 3957 Information not available 05/14/2022 Do You Have Smoke And Carbon Monoxide Detectors In Your Home? Yes MIGRATION.886329 1353 Information not available 05/14/2022 Do You Feel Stressed (tense, Restless, Nervous, Or Anxious, Or Unable To Sleep At Night)? PB71581-3 MIGRATION.184127 3936 Information not available 05/14/2022 Do You Use Any Illicit Or Recreational Drugs? No MIGRATION.820198 9041 Information not available 05/14/2022 Do You Use Sunscreen Routinely? Yes MIGRATION.146211 8324 Information not available 05/14/2022 Has Tobacco Cessation Counseling Been Provided? No MIGRATION.488174 3301 Information not available 05/14/2022 Have You Recently Traveled Abroad? No MIGRATION.373443 1946 Information not available 05/14/2022 Do You Have Any Dietary Restrictions? No MIGRATION.833368 9012 Information not available 05/14/2022 Do You Or Have You Ever Used Any Other Forms Of Tobacco Or Nicotine? No MIGRATION.902562 2822 Information not available 05/14/2022 Sex: Unknown Functional Status Question Answer Note LastModified by Organizat ion Details LastModified Time What is your exercise level? Heavy [id number].[id number] Information not available 05/14/2022 Mental Status None recorded. Family History Relationship Description Onset Age of this Age Resolved Age Notes LastModified by Organization Details LastModified Time Father Diabetes mellitus [id number] Not available 05/14/2022 19:27:57 Father Carcinoma of prostate [email or web address] Not available 11/10 12:12:16 Father Coronary arterioscler osis [email or web address] Not available 11/10 12:12:16 Mother Diabetes mellitus [id number] [id number] Not available 05/14/2022 19:27:57 Maternal Grandmother Malignant tumor of breast [email or web address] Not available 11/10 12:12:16 Medical History Condition Response DEPRESSION (INCLUDING POST ) Y ANXIETY DISORDER Y HEADACHES/MIGRAINES Y CARDIAC ARRHYTHMIA Y Gynecological History Statement/Question Response Abnormal Pap Y Date of Last Pap 03/16/2016 Date of Last Mammogram 11/18/2019 Sexually Active? Y Obstetrics History GPAL:G 0 P 0 0 0 0 Past Encounters Encounter ID Performer Location Encounter Start Date Encounter Closed Date Diagnosis/Indication Diagnosis SNOMED-CT Code Diagnosis ICD10 Code Diagnosis Note [id number] [facility] [place] [address] [place] [address] 11/06/2020 00:00:00 11/11/2020 19:45:51 [id number] [facility] [place] [address] [place] [address] 11/08/2021 00:00:00 11/13/2021 20:22:03 [id number] [facility] [place] [address] [place] [address] 03/31/2022 00:00:00 04/15/2022 21:53:20 [id number] LON Grider [facility] [place] [address] [place] [address] 11/10/2022 12:11:18 11/10/2022 13:51:13 Adult health examination 413987847 Z00.00 well exam completed. labs ordered. Cholesterol screening 27 1433914 Z13.220 fasting lipids ordered Diabetes m ellitus screening 677225298 Z13.1 screening a1c due Weight gain 7015441 R63. 5 screening TFTs ordered Depressive disorder 3548 9007 F32.A start trial of wellbutrin SR 100mg daily in the AM only for now. Lower urin lauren tract symptoms 373922937 R39.9 Rx for macrobid. Health Concerns Section Related Observation LastModified by Organization Detai ls LastModified Time None Recorded Concern Status LastModified by Organization Details LastModified Time None Recorded Advance Directives Directive N: Payers Encounter Date Sequence Insurance Name Policy Number Policy Sagast[employer] Covered Member ID Sagastume Member ID Guarantor Name 11/10/2022 1 [place] [id number] Jocy Mitchell [id number] Jocy Mitchell Notes Date Note Type Note Provider Name and Address Organization Details Recorded Time 11/06/2020 text/html Generic HPI TemplateReported bypatient.Notes:Pt is here today for her wellness exam, doing fine, no complaints Not Available [facility] 11/11/2020 19:45:51 11/08/2021 text/html Generic HPI TemplateReported bypatient.Notes:Pt is here for her wellness. No chronic prob/meds. She does continue to have back pain but she did start her menstrual cycle this morning. Not Available [facility] 11/13/2021 20:22:03 03/31/2022 text/html FatigueReported bypatient.Status:acut e; [...] fatigue(dull ache in the morning) Not Available [facility] 04/15/2022 21:53:20 11/10/2022 text/html Generic HPI TemplateReported bypatient.Notes:Pt is here for her wellness. No chronic problems. Wellness LON Grider [address] [facility], [facility] [address], [place], [address], [facility] 11/11/2022 09:02:36 OBGyn Episode No OBEpisode recorded.
--- OUTSIDE RECORDS SUMMARY | 2024-05-06 06:00 | XMS_ITS | Clinical Summary ---
Author Organization [facility] Address [address] [place] [address] Care Team Providers Care Pattern Molder Name Role Phone Annemarie Hill Primary Care Provider [phone] Allergies Active Allergy Reactions Criticality Noted Date Comments Bee Venom Unknown 04/06/2024 Codeine Unknown 04/06/2024 Medications No known medications Active Problems No known active problems Encounters Date Type Department Care Team Description 04/19/2024 7:30 AM HAND STRAIGHTENER - 04/19/2024 8:15 AM HAND STRAIGHTENER Surgery [facility] [place] [address] David Little IV, MD COLONOSCOPY 04/19/2024 7:27 AM HAND STRAIGHTENER Anesthesia Event [facility] [address] Shital Buitrago MD 04/19/2024 6:25 AM HAND STRAIGHTENER - 04/19/2024 9:33 AM HAND STRAIGHTENER Hospital Encounter [facility] [place] [address] David Little IV, MD Discharge Disposition: Home [...] Sex Assigned at Female 04/19/2024 6:25 AM HAND STRAIGHTENER Legal Sex Female 9:48 AM HAND STRAIGHTENER Gender Identity Not on file Sexual Orientation Not on file Last Filed Vital Signs Vital Sign Reading Time Taken Comments Blood Pressure 116/84 04/19/2024 8:50 AM HAND STRAIGHTENER Pulse 98 04/19/2024 8:06 AM HAND STRAIGHTENER Temperature 36.3 C (97.4 F) 04/19/2024 8:06 AM HAND STRAIGHTENER Respiratory Rate 18 04/19/2024 8:19 AM HAND STRAIGHTENER Oxygen Saturation 96% 04/19/2024 8:50 AM HAND STRAIGHTENER Inhaled Oxygen Concentration - - Weight 68 kg (150 lb) 04/11/2024 3:44 PM HAND STRAIGHTENER Height 162.6 cm (5' 4 ) 04/11/2024 3:44 PM HAND STRAIGHTENER Body Mass Index 25.75 04/11/2024 3:44 PM HAND STRAIGHTENER Plan of Treatment Health Maintenance Due Date [...] topic Meningococcal Vaccine Aged Out No luis doar eligible based on patient's age to complete [...] Diagnosis Comments COLONOSCOPY Routine 04/19/2024 8:00 AM HAND STRAIGHTENER COLONOSCOPY 04/19/2024 7:25 AM HAND STRAIGHTENER Screening from Last 3 Months Insurance [facility] Care Teams Pattern Molder Relationship Specialty Start Date End Date Annemarie Hill PA [address] [place] [address] [id number] [place] [address] PCP - General PHYSICIAN SIZE TESTER 04/15/24
--- OUTSIDE RECORDS SUMMARY | 2024-05-06 06:00 | XMS_ITS | Clinical Summary ---
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 The BMI is [...] options and prefers colonoscopy. Order placed for [facility] Arthralgia 11/22/2023 Assessment & Plan [...] caffeine Assessment & Plan (04/13/2023 12:03 AM VIDEO PRESENTATION OPERATOR): This is a significant, separately identifiable problem [...] b.i.d. Assessment & Plan (04/13/2023 12:03 AM VIDEO PRESENTATION OPERATOR): This is a significant, separately identifiable problem [...] 04/13/2023 Assessment & Plan (04/13/2023 12:02 AM VIDEO PRESENTATION OPERATOR): Continue oxybutynin. Refills to pharmacy Gastroesophageal reflux disease without esophagi tis 04/13/2023 Assessment & Plan (11/22/2023 9:51 PM CDT): Continue omeprazole 40 this plan persistent situational stress. Assessment & Plan (06/06/2023 2:47 PM CDT): Continue PPI p.r.n. Assessment & Plan (04/13/2023 12:05 AM VIDEO PRESENTATION OPERATOR): Discussed GERD at length including anatomy, behavioral [...] maintain. Assessment & Plan (04/13/2023 12:03 AM VIDEO PRESENTATION OPERATOR): Weight/BMI is in healthy range. Continue healthy lifestyle to maintain. Diabetes mellitus screening 04/13/2023 11/22/2023 Assessment & Plan (04/13/2023 12:03 AM VIDEO PRESENTATION OPERATOR): Check labs Lipid screening 04/13/2023 11/22/2023 Assessment & Plan (04/13/2023 12:03 AM VIDEO PRESENTATION OPERATOR): Check labs Fatigue 04/13/2023 11/22/2023 Assessment & Plan (08/12/2023 2:53 PM CDT): Probably multifactorial. Check labs and followup to re-evaluate Assessment & Plan (04/13/2023 12:03 AM VIDEO PRESENTATION OPERATOR): Probably multifactorial. Check labs and followup to re-evaluate Annual physical exam 04/13/2023 024 Assessment & Plan (04/13/2023 12:03 AM VIDEO PRESENTATION OPERATOR): Encouraged healthy lifestyle, good nutrition and exercise. Encouraged Calcium and Vitamin D and weight bearing exercise for bone health. Reviewed immunizations Reviewed age appropirate screenings. 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 Not on file Not on file Not on file Obstetrics History Last Filed Vital Signs Vital Sign Reading Time Taken Comments Blood Pressure 112/84 04/25/2024 9:59 AM VIDEO PRESENTATION OPERATOR Pulse 79 04/25/2024 9:59 AM VIDEO PRESENTATION OPERATOR Temperature 36.5 C (97.7 F) 04/25/2024 9:59 AM VIDEO PRESENTATION OPERATOR Respiratory Rate - - Oxygen Saturation 98% 04/25/2024 9:59 AM VIDEO PRESENTATION OPERATOR Inhaled Oxygen Concentration - - Weight 69.9 kg (154 lb) 04/25/2024 9:59 AM VIDEO PRESENTATION OPERATOR Height 163.8 cm (5' 4.49 ) 04/25/2024 9:59 AM CS T Body Mass Index 26.04 04/25/2024 9:59 AM VIDEO PRESENTATION OPERATOR Plan of Treatment Health Maintenance Due Date [...] Diagnosis Comments MAMMOGRAPHY Routine 2024 3:01 PM VIDEO PRESENTATION OPERATOR MAMMOGRAPHY Routine 2024 3:00 PM VIDEO PRESENTATION OPERATOR HM COLONOSCOPY Routine 04/19/2024 1:50 PM VIDEO PRESENTATION OPERATOR HEPATITIS PANEL, ACUTE Routine 09/16/2023 9:35 AM CDT from Last 3 Months or Most Recently Relevant to Health Maintenance Results * MAMMOGRAPHY (2024 3:01 PM VIDEO PRESENTATION OPERATOR) Mammography Normal Impressions La Guillen MA - 2024 3:01 PM VIDEO PRESENTATION OPERATOR BIRADS 2-Benign Historical Provider HEALTH MAINTENANCE Edited Result - Final * MAMMOGRAPHY (2024 3:00 PM VIDEO PRESENTATION OPERATOR) Historical Provider HEALTH MAINTENANCE Final Result * (ABNORMAL) COLONOSCOPY (04/19/2024 1:50 PM VIDEO PRESENTATION OPERATOR) Scribed Colonoscopy Unknown Historical Provider HEALTH [facility] Edited Result - Final * Hepatitis panel, acute (09/16/2023 9:35 AM CDT) Hep A IgM NON-REACTI VE NON-REACT [facility] Comment: For additional information, please refer to http://[employer]/faq/YKM135 (This link is being provided for informational/ educational purposes only.) HepBsAg NON-REACTI VE NON-REACT [facility] Comment: For additional information, please refer to http://[employer]/faq/RXJ015 (This link is being provided for informational/ educational purposes only.) Hep B core IgM NON-REACTI VE NON-REACT [facility] Comment: For additional information, please refer to http://[employer]/faq/EQR015 (This link is being provided for informational/ educational purposes only.) Hep C Ab NON-REACTI VE NON-REACT [facility] Comment: HCV antibody was non-reactive. There is no laboratory evidence of HCV infection. In most cases, no further action is required. However, if recent HCV exposure is suspected, a test for HCV RNA (test code 62226) is suggested. For additional information please refer to http://[employer]/faq/BJW27d4 (This link is being provided for informational/ educational purposes only.) 09/16/2023 9:35 AM CDT 09/16/2023 9:36 AM CDT Narrative [facility] - 09/17/2023 8:19 AM CDT FASTING:YES FASTING: YES Annemarie [facility] MICROBIOLOGY - GENERAL ORDERABLES Final Result [facility] [address] [facility] [place] [phone] from Last 3 Months or Most Recently Relevant to Health Maintenance Insurance [employer] P[place] Care Teams Wood Casket Maker Relationship Specialty Start Date End Date Annemarie Hill PA [address] [facility] [address] [place] [address] PCP - General Internal Medicine 04/08/23
--- NOTE | 2024-05-06 06:23 | WPDHPUPDATE1 ---
History and Physical Update Update Date/Time: 05/06/24 06:23 History and Physical has been reviewed, including an updated exam of the patient. There are NO changes in the patient's condition. Risks, benefits, and alternatives have been discussed and questions answered. Patient agrees to proceed with procedure.
[2024-05-06] MEDS: LACTATED RINGERS 1,000 ML 30 ML IV CONT (11:45)
--- NOTE | 2024-05-06 11:47 | P.PNAN_ITS ---
Anes - Initial Pre Proc Eval Procedure: Operation Date: 05/06/24 12:30 Proposed Procedures p Right Extracorporeal Shock Wave Lithotripsy - Federico Diaz MD Date/Time: 05/06/24 11:47 Surgeon: Federico Diaz MD Pre Op Diagnosis: Rt Renal Stone Patient Data Age: 54 Gender: F Height: 1.63 m Weight: 68.04 kg Allergies Allergy/AdvReac Type Severity Reaction Status Date / Time bee pollen Allergy Severe Swelling Verified 05/04/24 15:17 codeine Allergy Mild Vomiting Verified 05/04/24 15:17 Home Medications ?Medication ?Instructions ?Recorded ?Confirmed ?Type cranberry 500 mg capsule 500 mg PO DAILY 05/04/24 05/04/24 History omeprazole 40 mg capsule,delayed 40 mg PO DAILY 05/04/24 05/04/24 History release Patient hx anesthesia problems: none Family hx anesthesia problems: none Results Review: All pre-operative results and documents have been reviewed as part of the pre- operative evaluation. 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, cx dysplasia H/O LEEP 03/2014- hpv, cx dysplasia Family History Family History Grandparent Breast cancer Mother Hypertension Diabetes mellitus Father Malignant neoplasm of prostate Diabetes mellitus Other Pancreas cancer Mother Dementia Social History Social History Smoking status: Never smoker Alcohol intake: never Substance use: never Substance use type: does not use Do You Feel Safe in your Home?: Yes Lack of Transportation: No Lack of Food: Never True Current Housing: I Have Housing Concerned About Future Housing: No Difficulty Paying Gas/Electric Bills: No Difficulty Paying for Meds: No Currently Unemployed: No Education: Bachelor's Degree Difficulty w/ Childcare or Family Care: No Living arrangements: with family Occupation/Education: occupation 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 [employer] Gender identity (if verbalized by the patient): Female Sexual Orientation (if Verbalized by the Patient): Straight or Heterosexual Spiritual care concerns: No Anes - Eval Final PreProcedure Day of Procedure 05/06/24 11:47 Patient weight: overweight Heart: regular rate and rhythm Lungs: clear to auscultation Airway: Mallampati scale class II Neurological: alert and oriented Last oral intake: >/= 8 hours ASA classification: II Emergent: no Anesthetic plan: proceed Anesthesia type and monitoring: general GIVS and standard monitoring Results Review: All pre-operative results and documents have been reviewed as part of the pre- operative evaluation. Informed Consent: The patient's anesthetic plan and its attendant risks and benefits were discussed with the patient/family/POA. Questions were solicited and answers prov ided to the satisfaction of the patient/family/POA.
[2024-05-06] MEDS: ceFAZolin 2 GM/D5W 50 ML 2 GM/50 ML BAG IVPB (12:31)
[2024-05-06] MEDS: FAMOTIDINE 20 MG/2 ML VIAL IV PUSH (12:33)
--- NOTE | 2024-05-06 13:07 | P.OP_ITS ---
Procedure Note - Detailed Date of Procedure 05/06/24 Pre-op Diagnosis Right kidney stones Post-op Diagnosis Same Procedure Performed Right ESWL Surgeon Federico Diaz MD Anesthesia General Description of Procedure The patient was brought to the operative suite where he was placed in the supine position on the Dornier lithotripsy table. The focal point of the lithotripter was placed at two stone in right kidney that appeared to be contiguous, each 6- 7mm. A total of 2500 shocks were delivered at a power setting of 4. There appeared to be good fragmentation of the stone. The patient tolerated the procedure well and was taken to the recovery room in good condition. Drains No Packing No Pathology None sent Complications No immediate complications
== END 2024-05-06 14:56 | disposition home or self-care (01) ==
PROVIDERS: PCP Physician Assistant; Visit Provider Urology
PROC: (CPT 50590; principal; 2024-05-06 12:30)
DX: N20.0 Calculus of kidney (principal); K21.9 Gastro-esophageal reflux disease without esophagitis; F41.9 Anxiety disorder, unspecified; F32.A Depression, unspecified; R01.1 Cardiac murmur, unspecified; R39.15 Urgency of urination; Z98.890 Other specified postprocedural states; Z80.42 Family history of malignant neoplasm of prostate; Z80.3 Family history of malignant neoplasm of breast; Z80.0 Family history of malignant neoplasm of digestive organs
CPT/HCPCS: 50590; 74018; J0690; J1100; J2250; J2405; J2704; J3010; J7120